=== PATIENT | female | born 1930 | race Caucasian/White ===

== ENCOUNTER 2017-10-20 02:11 | Inpatient (IN) | payer MEDICARE ==
[2017-10-20 03:36] LABS: Troponin I 0.201 ng/mL (< 0.028)
[2017-10-20] MEDS ORDERED: Warfarin Sodium 5 MG TAB PO SCH (03:45)
[2017-10-20 06:39] LABS: Troponin I 1.893 ng/mL (< 0.028)
[2017-10-20] MEDS ORDERED: Nitroglycerin 0.4 MG TAB (25 Tab Bottle) SL PRN (06:43)
[2017-10-20 07:26] VITALS: BMI 20.9
[2017-10-20] MEDS ORDERED: HYDROcodone/Acetaminophen 5/325 mg Tablet PO PRN (07:55)
[2017-10-20] MEDS ORDERED: Ondansetron HCl/PF 4 MG/2 ML Vial IVP PRN (08:07)
[2017-10-20] MEDS ORDERED: Ondansetron ODT 4 MG TAB PO PRN (08:08)
[2017-10-20] MEDS: Aspirin 325 MG TAB PO SCH (08:27)
[2017-10-20] MEDS ORDERED: Enoxaparin Sodium 60 MG/0.6 ML SYRINGE SC SCH (09:00)
[2017-10-20] MEDS ORDERED: Enoxaparin Sodium 80 MG/0.8 ML SYRINGE SC SCH (09:00)
[2017-10-20 09:44] LABS: Troponin I 6.741 ng/mL (< 0.028)
[2017-10-20] MEDS ORDERED: HumaLOG 300 UNITS/3 ML VIAL SC PRN ×2 (09:52)
[2017-10-20] MEDS ORDERED: Dextrose 5% in Water 1,000 ML IV PRN (09:52)
[2017-10-20] MEDS ORDERED: Dextrose 50% Abboject 50 ML SYRINGE SLOW IVP PRN (09:52)
[2017-10-20] MEDS: Carvedilol 3.125 MG TAB PO SCH ×2 (09:55→21:22)
[2017-10-20] MEDS ORDERED: Iopamidol 370 76% 50 ML VIAL FS ONE (10:13)
[2017-10-20] MEDS ORDERED: Iopamidol 370 76% 100 ML VIAL ONE (10:13)
[2017-10-20 10:18] LABS: #Lymphocytes 1.7 thou/uL (1.20-3.40); #Monocytes 0.6 thou/uL (0.11-0.59); #Neutrophils 5.7 thou/uL (1.40-6.50); %Eosinophils 0.6 % (0.0-10.0); %Lymphocytes 20.8 % (21.0-51.0); %Monocytes 7.4 % (0.0-10.0); %Neutrophils 71.3 % (42.0-75.0); Mean Corpuscular Hemoglobin 25.2 pg (27.0-31.0); Mean Corpuscular Volume 81.5 fl (81.0-99.0); Mean Platelet Volume 7.2 fL (7.4-10.4); Platelet Count 345 thou/uL (130-400); RBC Distribution Width 14.7 % (11.5-14.5); Red Blood Cell (RBC) Count 3.96 mill/uL (4.20-5.40)
--- NOTE | 2017-10-20 10:21 | RAD ---
PA AND LATERAL CHEST XRAY: DATE: 10/20/17. HISTORY: Shortness of breath. COMPARISON: 05/27/16. FINDINGS: Thee has been interval almost complete resolution of bilateral pleural effusions. There is blunting of the posterior costophrenic angles suggesting small bilateral pleural effusions or pleural thickeni ng. Calcified granuloma is seen at the right lung base. Lungs are otherwise clear. Cardiac silhoue tte is enlarged. The pulmonary vasculature is within normal limits. Vascular calcification is seen in the thoracic aorta. There are prominent vascular calcifications in the region of the splenic yoel ry. Degenerative changes are present in the spine. IMPRESSION: 1. Small bilateral pleural effusions versus pleural and parenchymal scarring in the region of the po sterior costophrenic angles. 2. Cardiomegaly without overt congestive heart failure. POS: JES
[2017-10-20 10:25] LABS: INR-International Normal Ratio 1.8; PTT 34.6 SEC (22.9-36.1); Prothrombin Time 21.7 SEC (12.0-14.7)
[2017-10-20 10:26] LABS: Hemoglobin A1c 6.2 % (4.0-6.0)
[2017-10-20 10:40] LABS: ALT (SGPT) 26 U/L (8-55); AST (SGOT) 76 U/L (5-34); Albumin 4.2 g/dL (3.4-4.8); Alkaline Phosphatase 99 U/L (40-150); Anion Gap 12 mmol/L (10-20); BUN (Urea Nitrogen) 21 mg/dL (9.8-20.1); Bilirubin, Total 0.5 mg/dL (0.2-1.2); Calc. Creatinine Clearance 42 mL/min (70-130); Calcium 10.7 mg/dL (7.8-10.44); Carbon Dioxide 25 mmol/L (23-31); Chloride 105 mmol/L (98-107); Digoxin 1.04 ng/mL (0.8-2.0); Estimated GFR-MDRD 65; Globulin 3.6 g/dL (2.4-3.5); Glucose 123 mg/dL (83-110); Potassium 4.1 mmol/L (3.5-5.1); Protein, Total 7.8 g/dL (6.0-8.3); Sodium 138 mmol/L (136-145)
--- NOTE | 2017-10-20 10:50 | HP ---
DATE OF ADMISSION: 10/20/2017 CHIEF COMPLAINT: Chest pain. HISTORY OF PRESENT ILLNESS: This is an 86-year-old white female with a known history of coronary art sonam disease, was recently hospitalized in July with chest pain and had a cardiac catheterization, unable to stent because of the narrowed arteries and her coronary arteries. The patient was seen by Dr. Fuller at that time. The patient has returned today as she was having chest pain since last n ight, intermittently on and off and lasting for more than half an hour. The patient initially went t [facility] ER and then was transferred here as the patient has a persistent elevation of the trop onins. This morning, the troponin was 1.8. Her chest pain is resolved. She was on a nitropatch. S he denied having any nausea or vomiting at this time, but she did complain of sweating and palpitatio ns. The pain she locates is like a band-like pain across the chest, not radiating to the arm. The sydnie starr has a known history of type 2 diabetes mellitus and hypertension. She is a nonsmoker. She de nies alcohol. No history of illicit drug use. She had a history of a right peripheral arterial sten t placed in August by Dr. Fuller and was planned for a left femoral artery stenting also. The sydnie starr also has a history of atrial fibrillation and is on anticoagulation for that. PAST MEDICAL HISTORY: 1. Hypothyroidism. 2. Type 2 diabetes mellitus. 3. Coronary artery disease. 4. Atrial fibrillation. 5. History of diastolic heart failure. 6. Hypertension. PAST SURGICAL HISTORY: 1. Positive for an appendectomy. 2. Hysterectomy. 3. History of spinal surgeries in the past. SOCIAL HISTORY: The patient is a nonsmoker. No history of alcohol, no history of illicit drug use. She lives with her . FAMILY HISTORY: Not significant for any coronary artery disease. ALLERGIES: No known drug allergies. HOME MEDICATIONS: 1. Amlodipine 5 mg p.o. daily. 2. Digoxin 0.125 mg p.o. daily. 3. Lasix 40 mg p.o. daily. 4. Isosorbide mononitrate 60 mg p.o. daily. 5. Levothyroxine 100 mg p.o. daily. 6. Losartan 100 mg p.o. daily. 7. Metformin 500 mg p.o. b.i.d. 8. Metoprolol 25 mg p.o. daily. 9. Warfarin 5 mg p.o. as directed, 7.5 mg as directed. REVIEW OF SYSTEMS: All 12 systems are reviewed with the patient thoroughly and found to be negative. Constitutional: Weight loss or gain, ability to conduct usual activities. Skin: Rash, itching. Eyes: Double vision, pain. ENT/Mouth: Nose bleeding, neck stiffness, pain, tenderness. Cardiovascular: Palpitations, dyspnea on exertion, orthopnea. Respiratory: Shortness of breath, wheezing, cough, hemoptysis, fever or night sweats. Gastrointestinal: Poor appetite, abdominal pain, heartburn, nausea, vomiting, constipation, or diarrhea. Genitourinary: Urgency, frequency, dysuria, nocturia. Musculoskeletal: Pain, swelling. Neurologic/Psychiatric: Anxiety, depression. Allergy/Immunologic: Skin rash, bleeding tendency. PHYSICAL EXAMINATION: VITAL SIGNS: Blood pressures are pressures are 158/73, heart rate is 88, respirations 18, saturation 99%. GENERAL: The patient is moderately built, moderately nourished, does not appear to be in acute distr ess at this time. She is alert, oriented x3. HEENT: Atraumatic, normocephalic. PERRLA. Extraocular muscles were intact. Oral mucosa pink and m oist. CARDIOVASCULAR: S1, S2 normal. No murmurs, rubs or gallops. LUNGS: Bilateral air entry was equal. No wheezing, no crackles. ABDOMEN: Soft, nontender, no guarding, no rebound tenderness. Bowel sounds normal. MUSCULOSKELETAL: No calf tenderness. No pedal edema. No joint tenderness, no joint swelling. SKIN: No cyanosis or erythema, no rash, no pallor. NEUROLOGIC: Cranial nerve examination II-XII are intact. No focal deficits are noted at this time. PSYCHIATRIC: No signs of hallucinations, no signs of sofía. No signs of depression. NECK: No thyromegaly. No lymphadenopathy was noted. LABORATORY DATA: Labs are currently pending. A CBC and a CMP was ordered today along with a BNP. Chest x-ray is very clear. No evidence of any cardiopulmonary process at this time. Chest x-ray has been reviewed by me. ASSESSMENT AND PLAN: 1. Atb-QP-ixbicry elevation myocardial infarction. 2. History of type 2 diabetes mellitus. 3. History of atrial fibrillation. 4. Hypertension. 5. History of hyperlipidemia. PLAN: 1. The plan is to closely monitor this patient. We will start the patient on Lovenox 1 mg/kg b.i.d. and will continue the patient on beta-blockers and aspirin. Will consult Cardiology for further man agement at this time. The patient has a recent cardiac catheterization which did show evidence of ob structive vessel, but because of the low caliber of the vessel no intervention was offered at that ti mo and the patient also has history of peripheral vascular disease closely monitored. No evidence of any claudications in the legs. 2. Patient has a history of type 2 diabetes mellitus, well controlled. We will restart the patient on home medications. We will keep the patient on a sliding scale insulin at this time. We will hold off on the metformin. 3. History of atrial fibrillation. We will continue the patient on digoxin. We will check the digo nidia levels, the patient is rate controlled at this time and we will continue the beta vanessa. 4. History of hypertension, well controlled. We will continue the patient on home medications at th is time, the patient is on losartan 100 mg p.o. daily. 5. Deep venous thrombosis prophylaxis. Patient is on Coumadin, therapeutic. DICTATING PHYSICIAN: Bakari Savage M.D. I spent 75 minutes with this patient.
[2017-10-20] MEDS ORDERED: Lidocaine 1% (PF) 30 ML VIAL ONE (11:14)
[2017-10-20] MEDS ORDERED: Sodium Chloride 0.9% 1,000 ML IV SCH (11:15)
[2017-10-20] MEDS ORDERED: Communication Order-Pharmacy FS SCH (11:15)
[2017-10-20] MEDS ORDERED: Fentanyl 100 MCG/2 ML VIAL ONE (11:53)
[2017-10-20] MEDS ORDERED: Midazolam HCl 2 mg/2 ml Vial ONE (11:53)
[2017-10-20] MEDS ORDERED: Nitroglycerin 100MG/250ML BOT 250 ML ONE (12:02)
--- NOTE | 2017-10-20 12:12 | PRG ---
DATE OF SERVICE: 10/20/2017 SUBJECTIVE: Ms. Jackson recently presented with chest pain. It was acute in onset. It lasted for 1 hour. She was in the emergency room where symptoms markedly improved. Her troponin was elevated at 6. Mr. Jackson does have a history of occluded right coronary artery in addition to severe stenosis to a diagonal branch in addition to a subtotal OM branch. Her most recent stress study performed within t he last month did suggest a marked diminished LVEF which is a new finding. She also had ischemia pre sent in the lateral wall. Given troponin, acute onset of chest pain, would recommend repeat coronary angiography. I discussed the procedure in full detail with Ms. Jackson. The risks included but not limited to the following: , stroke, [place], need for emergency surgery, loss of limb, bleeding, and infection, as well as a re action to the dye causing kidney failure and needing long-term dialysis. Other risks include acute st ent thrombosis and restenosis, vessel dissection, perforation, need for emergency surgery in addition to distal embolization causing chronic foot discomfort as well as amputation. All questions were an swered. We will proceed with drug-coated stent placement if needed. Further recommendations pending the above.
[2017-10-20] MEDS ORDERED: Heparin 10,000 UNITS/1 ML VIAL ONE (12:36)
[2017-10-20] MEDS ORDERED: Clopidogrel Bisulfate 300 MG TAB ONE (12:36)
[2017-10-20] MEDS ORDERED: Nitroglycerin 2% Ointment 1 INCH/1 GM Packet TOP SCH (14:00)
[2017-10-20] MEDS ORDERED: Furosemide 20 MG/2 ML VIAL SLOW IVP SCH (14:00)
[2017-10-20] MEDS ORDERED: Clopidogrel Bisulfate 300 MG TAB PO SCH (14:13)
[2017-10-20] MEDS: Sodium Chloride 0.9% 1,000 ML IV SCH ×2 (14:47→23:28)
[2017-10-21 06:13] LABS: ALT (SGPT) 20 U/L (8-55); AST (SGOT) 46 U/L (5-34); Albumin 3.5 g/dL (3.4-4.8); Alkaline Phosphatase 81 U/L (40-150); Anion Gap 12 mmol/L (10-20); BUN (Urea Nitrogen) 19 mg/dL (9.8-20.1); Bilirubin, Total 0.7 mg/dL (0.2-1.2); Calc. Creatinine Clearance 44 mL/min (70-130); Carbon Dioxide 23 mmol/L (23-31); Chloride 107 mmol/L (98-107); Estimated GFR-MDRD 70; Globulin 2.9 g/dL (2.4-3.5); Glucose 121 mg/dL (83-110); Potassium 3.8 mmol/L (3.5-5.1); Protein, Total 6.4 g/dL (6.0-8.3); Sodium 138 mmol/L (136-145)
[2017-10-21] MEDS: Carvedilol 3.125 MG TAB PO SCH ×2 (08:36→20:24)
[2017-10-21] MEDS: Clopidogrel Bisulfate 75 MG TAB PO SCH (08:36)
[2017-10-21] MEDS: Aspirin 325 MG TAB PO SCH (08:36)
[2017-10-21] MEDS: Amlodipine 5 MG TAB PO SCH (08:36)
[2017-10-21] MEDS: Levothyroxine Sodium 75 MCG TAB PO SCH (08:37)
[2017-10-21] MEDS: Digoxin 0.125 MG TAB PO SCH (08:37)
[2017-10-21] MEDS: Furosemide 40 MG TAB PO SCH (08:37)
[2017-10-21] MEDS: Enoxaparin Sodium 60 MG/0.6 ML SYRINGE SC SCH ×2 (08:37→20:25)
[2017-10-21] MEDS: Losartan 25 MG TAB PO SCH (08:38)
[2017-10-21] MEDS ORDERED: Furosemide 80 MG TAB PO SCH (09:00)
[2017-10-21] MEDS: Sodium Chloride 0.9% 1,000 ML IV SCH ×2 (10:38→20:31)
--- NOTE | 2017-10-21 13:59 | CON ---
DATE OF CONSULTATION: 10/20/2017 REASON FOR CONSULTATION: Non-Q wave myocardial infarction. HISTORY OF PRESENT ILLNESS: Ms. Jackson is a very pleasant 86-year-old woman I had seen her in the [facility]. She has a history of CAD with a completely occluded right coronary artery and subtotalled OM [facility] in addition to severe stenosis of a large diagonal branch. She has been treated medically over t he last 2 years. She recently presented with chest pain. It was acute in onset. No other ameliorat ing, exacerbating, or precipitating factors present. She is currently pain free. PAST MEDICAL HISTORY: CAD, diabetes mellitus, hypothyroidism, diastolic heart failure, hypertension. PAST SURGICAL HISTORY: Hysterectomy, appendectomy. SOCIAL HISTORY: No current tobacco or alcohol use. ALLERGIES: None. REVIEW OF SYSTEMS: Ten-point review of systems is reviewed and was negative. HOME MEDICATIONS: Coumadin, digoxin, amlodipine, levothyroxine, isosorbide, Lasix, metoprolol, losar herndon, metformin, and Coumadin. PHYSICAL EXAMINATION: VITAL SIGNS: Blood pressure 130/56, pulse 65, temperature 97.6. GENERAL: Patient is a pleasant female who is in no acute distress. The patient appears her stated age. VITAL SIGNS: NEUROLOGIC: The patient is alert and oriented times 3 with no focal neurologic deficits. HEENT: Sclerae without icterus. Mouth has moist mucous membranes with normal pallor. NECK: No JVD. Carotid upstroke brisk. No bruits bilaterally. LUNGS: Clear to auscultation with unlabored respirations. BACK: No scoliosis or kyphosis. CARDIAC: Regular rate and rhythm with normal S1 and S2. No S3 or S4 noted. No significant rubs, murmurs, thrills, or gallops noted throughout the precordium. PMI is not displaced. There is no parasternal heave. ABDOMEN: Soft, nontender, nondistended. No peritoneal signs present. No hepatosplenomegaly. No abnormal striae. EXTREMITIES: 2+ femoral and 2+ dorsalis pedis pulses. No cyanosis, clubbing, or edema. SKIN: No gross abnormalities. PERTINENT LABS: Hemoglobin 10, creatinine 0.78. IMPRESSION: 1. Non-Q wave myocardial infarction. 2. Coronary artery disease. 3. Cardiomyopathy. RECOMMENDATIONS: From a CV standpoint, her symptoms appear to be acute in onset suggesting unstable angina. At this point, I recommend coronary angio plus PCI. Please see previous consent. Further r ecommendations pending the above.
--- NOTE | 2017-10-21 14:04 | PRG ---
DATE OF SERVICE: 10/21/2017 SUBJECTIVE: Ms. Jackson currently is doing much better. No recurrent episodes of the chest pain or p ressure. No shortness of breath, lightheadedness or dizziness. PHYSICAL EXAMINATION: GENERAL: Patient is a pleasant female who is in no acute distress. The patient appears her stated a ge. CURRENT VITAL SIGNS: Blood pressure 130/56, pulse 65, temperature 97.6. NEUROLOGIC: The patient is alert and oriented times 3 with no focal neurologic deficits. HEENT: Sclerae without icterus. Mouth has moist mucous membranes with normal pallor. NECK: No JVD. Carotid upstroke brisk. No bruits bilaterally. LUNGS: Clear to auscultation with unlabored respirations. BACK: No scoliosis or kyphosis. CARDIAC: Regular rate and rhythm with normal S1 and S2. No S3 or S4 noted. No significant rubs, mu rmurs, thrills, or gallops noted throughout the precordium. PMI is not displaced. There is no ramakrishna ternal heave. ABDOMEN: Soft, nontender, nondistended. No peritoneal signs present. No hepatosplenomegaly. No ab normal striae. EXTREMITIES: 2+ femoral and 2+ dorsalis pedis pulses. No cyanosis, clubbing, or edema. SKIN: No gross abnormalities. IMPRESSION: 1. Mmc-JP-toevnjd elevation myocardial infarction. 2. Severe multivessel disease. RECOMMENDATIONS: I discussed with Ms. Jackson and I did review the films again. Also, I reviewed the films with Dr. Lana Donald. The vessel within the mid circumflex artery is certainly approachable , although I would likely need a 2.25 stent. I did discuss with Ms. Jackson that there is a concern f or jailing of the vessel causing further MO. I also stated that if conservative therapy was performe d, she is at increased risk of a second event over the next 14 days. I have discussed the risks and benefits of proceeding with medical therapy versus repeat angiography with stent placement of the cir cumflex artery. She has opted for medical therapy. We will therefore add Plavix in addition to isos orbide. She would also like to proceed with novel oral anticoagulation instead of Coumadin. We will discontinue Lovenox and place her on Eliquis prior to discharge. I would like to observe her overni ght and tomorrow. If stable, it would be okay from my standpoint to discharge home on Tuesday. I als o discussed LifeVest with Mr. Jackson. Her LVEF is estimated at 25%-30%. She is amenable to LifeVest .
--- NOTE | 2017-10-21 15:48 | PDOC.PN ---
- Subjective Encounter Start Date: 10/21/17 Encounter Start Time: 15:00 Patient is seen today post cath, she is alert and orietwed. family at bedside, waiting for Life vest. - Objective Resuscitation Status: Resuscitation Status FULL:Full Resuscitation MAR Reviewed: Yes Vital Signs & Weight: Vital Signs (12 hours) Temp Pulse Pulse Pulse Resp BP BP 10/21/17 15:43 97.6 F 62 18 10/21/17 11:30 97.6 F 65 16 10/21/17 09:11 96 89 128/81 10/21/17 08:37 76 10/21/17 08:36 76 143/65 H 10/21/17 07:31 97.9 F 76 16 10/21/17 07:10 98.4 F 63 16 10/21/17 04:00 98.4 F 63 16 BP BP Pulse Ox 10/21/17 15:43 119/59 L 95 10/21/17 11:30 130/56 L 96 10/21/17 09:11 119/56 L 10/21/17 08:37 10/21/17 08:36 10/21/17 07:31 143/65 H 95 10/21/17 07:10 93 L 10/21/17 04:00 128/62 96 Weight Weight 117 lb 8 oz I&O: 10/20/17 10/21/17 10/22/17 06:59 06:59 06:59 Intake Total 2701 600 Output Total 0 Balance 2701 600 Result Diagrams: 10/20/17 10:11 10/21/17 05:04 Additional Labs: Accuchecks 10/21/17 10/21/17 10/20/17 10:46 05:48 20:42 POC Glucose 138 H 124 H 156 H 10/20/17 17:23 POC Glucose 174 H Radiology Reviewed by me: Yes Phys Exam - Physical Examination HEENT: PERRLA, moist MMs Neck: no nodes, no JVD Respiratory: clear to auscultation bilateral Cardiovascular: RRR, no significant murmur Gastrointestinal: soft, non-tender Musculoskeletal: no edema Lymphatic: no nodes Psychiatric: normal affect, A&O x 3 Dx/Plan (1) DM type 2 (diabetes mellitus, type 2) Status: Acute Comment: continue with ARTUR. Milly. (2) Afib Code(s): I48.91 - UNSPECIFIED ATRIAL FIBRILLATION Status: Acute Comment: rate controleld, continue to Monitor. (3) HTN (hypertension) Code(s): I10 - ESSENTIAL (PRIMARY) HYPERTENSION Status: Acute Comment: Well controlled On AceI, Coreg, Will add spironlactone. (4) NSTEMI (non-ST elevated myocardial infarction) Code(s): I21.4 - NON-ST ELEVATION (NSTEMI) MYOCARDIAL INFARCTION Status: Acute (5) Palpitations Code(s): R00.2 - PALPITATIONS Status: Acute Comment: Cardiac cath today, waiti for recommedations. Planned for Life vest perm nurse - Plan cont current plan of care, continue antibiotics, PT/OT, social insurance administrator, respiratory therapy, incentive spirometry, out of bed/ambulate * . - Discharge Day Encounter end time: 15:35 Review of Systems - Review of Systems Eyes: negative: Pain, Vision Change, Conjunctivae Inflammation, Eyelid Inflammation, Redness, Other ENT: negative: Ear Pain, Ear Discharge, Nose Pain, Nose Discharge, Nose Congestion, Mouth Pain, Mouth Swelling, Throat Pain, Throat Swelling, Other Respiratory: negative: Cough, Dry, Shortness of Breath, Hemoptysis, SOB with Excertion, Pleuritic Pain, Sputum, Wheezing Cardiovascular: negative: chest pain, palpitations, orthopnea, paroxysmal nocturnal dyspnea, edema, light headedness, other Gastrointestinal: negative: Nausea, Vomiting, Abdominal Pain, Diarrhea, Constipation, Melena, Hematochezia, Other Genitourinary: negative: Dysuria, Frequency, Incontinence, Hematuria, Retention , Other Musculoskeletal: negative: Neck Pain, Shoulder Pain, Arm Pain, Back Pain, Hand Pain, Leg Pain, Foot Pain, Other - Medications/Allergies Allergies/Adverse Reactions: Allergies Allergy/AdvReac Type Severity Reaction Status Date / Time No Known Allergies Allergy Verified 07/15/15 11:26 Medications: Current Medications Acetaminophen (Tylenol) 650 mg PO Q4H PRN PRN Reason: Headache/Fever or Pain Hydrocodone Bitart/Acetaminophen ([place] 5/325) 1 tab PO Q4H PRN PRN Reason: Moderate Pain (4-6) Amlodipine Besylate (Norvasc) 5 mg PO DAILY [facility] Last Admin: 10/21/17 08:36 Dose: 5 mg Aspirin (Aspirin) 325 mg PO DAILY [facility] Last Admin: 10/21/17 08:36 Dose: 325 mg Carvedilol (Coreg) 3.125 mg PO BID [facility] Last Admin: 10/21/17 08:36 Dose: 3.125 mg Clopidogrel Bisulfate (Plavix) 75 mg PO DAILY [facility] Last Admin: 10/21/17 08:36 Dose: 75 mg Dextrose/Water (Dextrose 50%) 25 gm SLOW IVP PRN PRN PRN Reason: Hypoglycemia Digoxin (Lanoxin) 0.125 mg PO DAILY [facility] Last Admin: 10/21/17 08:37 Dose: 0.125 mg Enoxaparin Sodium (Lovenox) 50 mg SC 0900,2100 [facility] Last Admin: 10/21/17 08:37 Dose: 50 mg Furosemide (Lasix) 40 mg PO DAILY [facility] Last Admin: 10/21/17 08:37 Dose: 40 mg Glucagon (Glucagon) 1 mg IM PRN PRN PRN Reason: Hypoglycemia Dextrose/Water (D5w) 1,000 mls @ 0 mls/hr IV .Q0M PRN; As Directed PRN Reason: Hypoglycemia Sodium Chloride (Normal Saline 0.9%) 1,000 mls @ 100 mls/hr IV .Q10H [facility] Last Admin: 10/21/17 10:38 Dose: 1,000 mls Insulin Human Lispro (Humalog) 0 units SC .MODERATE SLIDING SC PRN PRN Reason: Moderate Correctional Scale Insulin Human Lispro (Humalog) 0 units SC .BEDTIME SLIDING SC PRN PRN Reason: Bedtime Correctional Scale Isosorbide Mononitrate (Imdur Er) 30 mg PO DAILY [facility] Last Admin: 10/21/17 08:37 Dose: 30 mg Levothyroxine Sodium (Synthroid) 75 mcg PO DAILY [facility] Last Admin: 10/21/17 08:37 Dose: 75 mcg Losartan Potassium (Cozaar) 100 mg PO DAILY [facility] Last Admin: 10/21/17 08:38 Dose: 100 mg Nitroglycerin (Nitrostat) 0.4 mg SL Q5MIN PRN PRN Reason: Chest Pain Sodium Chloride (Flush - Normal Saline) 10 ml IVF Q12HR [facility] Last Admin: 10/21/17 08:35 Dose: Not Given Sodium Chloride (Flush - Normal Saline) 10 ml IVF PRN PRN PRN Reason: Saline Flush
[2017-10-22] MEDS: Acetaminophen 325 MG TAB PO PRN (00:05)
[2017-10-22] MEDS: Sodium Chloride 0.9% 1,000 ML IV SCH ×2 (05:47→08:31)
[2017-10-22] MEDS: Amlodipine 5 MG TAB PO SCH (08:23)
[2017-10-22] MEDS: Carvedilol 3.125 MG TAB PO SCH ×2 (08:24→21:45)
[2017-10-22] MEDS: Digoxin 0.125 MG TAB PO SCH (08:24)
[2017-10-22] MEDS: Enoxaparin Sodium 60 MG/0.6 ML SYRINGE SC SCH ×2 (08:24→21:45)
[2017-10-22] MEDS: Aspirin 325 MG TAB PO SCH (08:24)
[2017-10-22] MEDS: Clopidogrel Bisulfate 75 MG TAB PO SCH (08:24)
[2017-10-22] MEDS: Losartan 25 MG TAB PO SCH (08:25)
[2017-10-22] MEDS: Furosemide 40 MG TAB PO SCH (08:25)
[2017-10-22] MEDS: Levothyroxine Sodium 75 MCG TAB PO SCH (08:25)
--- NOTE | 2017-10-22 12:18 | PRG ---
DATE OF SERVICE: 10/22/2017 SUBJECTIVE: Ms. Jackson is doing well, no chest pain or pressure. PHYSICAL EXAMINATION: VITAL SIGNS: Blood pressure 134/67, pulse 67. LUNGS: Clear. CARDIAC: Normal S1, normal S2. ABDOMEN: Soft, nontender. EXTREMITIES: There is no edema. ASSESSMENT: 1. Status post non-ST elevation infarction. 2. Multivessel coronary artery disease. PLAN: The patient is having arrangements to have a LifeVest placed. Okay to go home after that.
--- NOTE | 2017-10-22 13:39 | PDOC.PN ---
- Subjective Encounter Start Date: 10/22/17 Encounter Start Time: 10:00 Patient is seen today, alert and oriented. No other Concerns noted. no cough, no chest pain. - Objective Resuscitation Status: Resuscitation Status FULL:Full Resuscitation MAR Reviewed: Yes Vital Signs & Weight: Vital Signs (12 hours) Temp Pulse Resp BP BP BP Pulse Ox 10/22/17 11:34 98.4 F 67 15 134/67 98 10/22/17 08:24 70 10/22/17 08:23 70 162/72 H 10/22/17 07:14 97.8 F 70 20 162/72 H 100 10/22/17 07:10 97.5 F L 96 16 95 10/22/17 03:58 97.5 F L 96 16 146/81 H 100 Weight Weight 119 lb 4.8 oz I&O: 10/21/17 10/22/17 10/23/17 06:59 06:59 06:59 Intake Total 2701 2457 300 Output Total 0 Balance 2701 2457 300 Result Diagrams: 10/20/17 10:11 10/21/17 05:04 Additional Labs: Accuchecks 10/22/17 10/22/17 10/21/17 11:26 05:50 20:45 POC Glucose 117 H 117 H 150 H 10/21/17 16:57 POC Glucose 123 H Radiology Reviewed by me: Yes Phys Exam - Physical Examination HEENT: PERRLA, moist MMs Neck: no nodes, no JVD Respiratory: no wheezing, no rales Cardiovascular: RRR, no significant murmur Gastrointestinal: soft, non-tender Musculoskeletal: no edema, pulses present Neurological: non-focal, normal sensation Lymphatic: no nodes Psychiatric: normal affect, A&O x 3 Dx/Plan (1) DM type 2 (diabetes mellitus, type 2) Status: Acute Comment: continue with SSI. [place]. (2) Afib Code(s): I48.91 - UNSPECIFIED ATRIAL FIBRILLATION Status: Acute Comment: rate controleld, continue to Monitor. (3) HTN (hypertension) Code(s): I10 - ESSENTIAL (PRIMARY) HYPERTENSION Status: Acute Comment: Well controlled On AceI, Coreg, Will add spironlactone. (4) NSTEMI (non-ST elevated myocardial infarction) Code(s): I21.4 - NON-ST ELEVATION (NSTEMI) MYOCARDIAL INFARCTION Status: Acute (5) Palpitations Code(s): R00.2 - PALPITATIONS Status: Acute Comment: Cardiac cath today showed persistant lesions, Cardiology suggested No intervention and medical management only, with Life vest, Will also planned for Eliquis at [facility]. - Plan cont current plan of care, plan discussed w/ family, PT/OT, social work associate, respiratory therapy, incentive spirometry, out of bed/ambulate, DVT proph w/ lovenox * . - Discharge Day Encounter end time: 10:35 Review of Systems - Review of Systems Eyes: negative: Pain, Vision Change, Conjunctivae Inflammation, Eyelid Inflammation, Redness, Other ENT: negative: Ear Pain, Ear Discharge, Nose Pain, Nose Discharge, Nose Congestion, Mouth Pain, Mouth Swelling, Throat Pain, Throat Swelling, Other Respiratory: negative: Cough, Dry, Shortness of Breath, Hemoptysis, SOB with Excertion, Pleuritic Pain, Sputum, Wheezing Cardiovascular: negative: chest pain, palpitations, orthopnea, paroxysmal nocturnal dyspnea, edema, light headedness, other Gastrointestinal: negative: Nausea, Vomiting, Abdominal Pain, Diarrhea, Constipation, Melena, Hematochezia, Other Musculoskeletal: negative: Neck Pain, Shoulder Pain, Arm Pain, Back Pain, Hand Pain, Leg Pain, Foot Pain, Other - Medications/Allergies Allergies/Adverse Reactions: Allergies Allergy/AdvReac Type Severity Reaction Status Date / Time No Known Allergies Allergy Verified 07/15/15 11:26 Medications: Current Medications Acetaminophen (Tylenol) 650 mg PO Q4H PRN PRN Reason: Headache/Fever or Pain Last Admin: 10/22/17 00:05 Dose: 650 mg Hydrocodone Bitart/Acetaminophen ([place] 5/325) 1 tab PO Q4H PRN PRN Reason: Moderate Pain (4-6) Amlodipine Besylate (Norvasc) 5 mg PO DAILY [facility] Last Admin: 10/22/17 08:23 Dose: 5 mg Aspirin (Aspirin) 325 mg PO DAILY [facility] Last Admin: 10/22/17 08:24 Dose: 325 mg Carvedilol (Coreg) 3.125 mg PO BID [facility] Last Admin: 10/22/17 08:24 Dose: 3.125 mg Clopidogrel Bisulfate (Plavix) 75 mg PO DAILY [facility] Last Admin: 10/22/17 08:24 Dose: 75 mg Dextrose/Water (Dextrose 50%) 25 gm SLOW IVP PRN PRN PRN Reason: Hypoglycemia Digoxin (Lanoxin) 0.125 mg PO DAILY [facility] Last Admin: 10/22/17 08:24 Dose: 0.125 mg Enoxaparin Sodium (Lovenox) 50 mg SC 0900,2100 [facility] Last Admin: 10/22/17 08:24 Dose: 50 mg Furosemide (Lasix) 40 mg PO DAILY [facility] Last Admin: 10/22/17 08:25 Dose: 40 mg Glucagon (Glucagon) 1 mg IM PRN PRN PRN Reason: Hypoglycemia Dextrose/Water (D5w) 1,000 mls @ 0 mls/hr IV .Q0M PRN; As Directed PRN Reason: Hypoglycemia Insulin Human Lispro (Humalog) 0 units SC .MODERATE SLIDING SC PRN PRN Reason: Moderate Correctional Scale Insulin Human Lispro (Humalog) 0 units SC .BEDTIME SLIDING SC PRN PRN Reason: Bedtime Correctional Scale Isosorbide Mononitrate (Imdur Er) 30 mg PO DAILY [facility] Last Admin: 10/22/17 08:25 Dose: 30 mg Levothyroxine Sodium (Synthroid) 75 mcg PO DAILY [facility] Last Admin: 10/22/17 08:25 Dose: 75 mcg Losartan Potassium (Cozaar) 100 mg PO DAILY [facility] Last Admin: 10/22/17 08:25 Dose: 100 mg Nitroglycerin (Nitrostat) 0.4 mg SL Q5MIN PRN PRN Reason: Chest Pain Sodium Chloride (Flush - Normal Saline) 10 ml IVF Q12HR [facility] Last Admin: 10/22/17 08:22 Dose: Not Given Sodium Chloride (Flush - Normal Saline) 10 ml IVF PRN PRN PRN Reason: Saline Flush
--- NOTE | 2017-10-23 08:49 | EKG ---
Test Reason : POST CATH Blood Pressure : / mmHG Vent. Rate : 077 BPM Atrial Rate : 074 BPM P-R Int : 000 ms QRS Dur : 098 ms QT Int : 364 ms P-R-T Axes : 000 043 -31 degrees QTc Int : [address] depression, consider subendocardial injury or digitalis effect Nonspecific T wave abnormality , probably digitalis effect Abnormal ECG When compared with ECG of 20-OCT-2017 02:58, (Unconfirmed) Minimal criteria for Anterior infarct are no longer Present Nonspecific T wave abnormality has replaced inverted T waves in Lateral leads Confirmed by JIGAR GARCIA MD ([id number]) on 10/23/2017 8:49:12 AM Referred By: JOSE Confirmed By:JIGAR GARCIA MD
[2017-10-23] MEDS: Clopidogrel Bisulfate 75 MG TAB PO SCH (08:52)
[2017-10-23] MEDS: Furosemide 40 MG TAB PO SCH (08:52)
[2017-10-23] MEDS: Amlodipine 5 MG TAB PO SCH (08:52)
[2017-10-23] MEDS: Carvedilol 3.125 MG TAB PO SCH ×2 (08:52→21:04)
[2017-10-23] MEDS: Aspirin 325 MG TAB PO SCH (08:52)
[2017-10-23] MEDS: Digoxin 0.125 MG TAB PO SCH (08:52)
--- NOTE | 2017-10-23 08:52 | EKG ---
Test Reason : Blood Pressure : / mmHG Vent. Rate : 074 BPM Atrial Rate : 288 BPM P-R Int : 000 ms QRS Dur : 100 ms QT Int : 374 ms P-R-T Axes : 000 013 -54 degrees QTc Int : 415 ms Atrial fibrillation with premature ventricular or aberrantly conducted complexes Septal infarct , age undetermined Abnormal ECG Confirmed by JOSE LOUIS, JIGAR ([id number]) on 10/23/2017 8:52:24 AM Referred By: JOSE Confirmed By:JIGAR GARCIA MD
[2017-10-23] MEDS: Enoxaparin Sodium 60 MG/0.6 ML SYRINGE SC SCH ×2 (08:53→21:04)
[2017-10-23] MEDS: Levothyroxine Sodium 75 MCG TAB PO SCH (08:53)
[2017-10-23] MEDS: Losartan 25 MG TAB PO SCH (08:53)
--- NOTE | 2017-10-23 15:22 | PDOC.PN ---
- Subjective Encounter Start Date: 10/23/17 Encounter Start Time: 09:00 Patient is seen today, alert and oriented. No other concern snoted, pt is planned for Eliquis to be started at discharge. - Objective Resuscitation Status: Resuscitation Status FULL:Full Resuscitation MAR Reviewed: Yes Vital Signs & Weight: Vital Signs (12 hours) Temp Pulse Pulse Pulse Resp BP BP 10/23/17 11:39 91 70 159/72 H 140/64 10/23/17 10:37 98.3 F 59 L 18 10/23/17 08:52 75 10/23/17 08:00 97.5 F L 75 16 10/23/17 07:35 98.6 F 70 18 10/23/17 04:00 98.6 F 70 18 BP Pulse Ox 10/23/17 11:39 10/23/17 10:37 109/59 L 95 10/23/17 08:52 10/23/17 08:00 144/67 H 97 10/23/17 07:35 10/23/17 04:00 130/58 L 98 Weight Weight 111 lb 12.8 oz I&O: 10/22/17 10/23/17 10/24/17 06:59 06:59 06:59 Intake Total 2457 900 480 Balance 2457 900 480 Result Diagrams: 10/20/17 10:11 10/21/17 05:04 Additional Labs: Accuchecks 10/23/17 10/23/17 10/22/17 10:41 04:56 20:14 POC Glucose 184 H 127 H 122 H 10/22/17 16:29 POC Glucose 173 H Radiology Reviewed by me: Yes Phys Exam - Physical Examination HEENT: PERRLA, moist MMs Neck: no nodes, no JVD Respiratory: no wheezing, no rales Cardiovascular: RRR, no significant murmur Gastrointestinal: soft, non-tender Musculoskeletal: no edema, pulses present Neurological: non-focal, normal sensation Lymphatic: no nodes Dx/Plan (1) DM type 2 (diabetes mellitus, type 2) Status: Acute Comment: continue with SSI. Stbale. (2) Afib Code(s): I48.91 - UNSPECIFIED ATRIAL FIBRILLATION Status: Acute Comment: rate controleld, continue to Monitor. (3) HTN (hypertension) Code(s): I10 - ESSENTIAL (PRIMARY) HYPERTENSION Status: Acute Comment: Well controlled On AceI, Coreg, Will add spironlactone. (4) NSTEMI (non-ST elevated myocardial infarction) Code(s): I21.4 - NON-ST ELEVATION (NSTEMI) MYOCARDIAL INFARCTION Status: Acute (5) Palpitations Code(s): R00.2 - PALPITATIONS Status: Acute Comment: Cardiac cath showed persistant lesions, Cardiology suggested No intervention and medical management only, with Life vest, Will also planned for Eliquis at [facility] today. 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 - Discharge Day Encounter end time: 09:35 Review of Systems - Review of Systems Eyes: negative: Pain, Vision Change, Conjunctivae Inflammation, Eyelid Inflammation, Redness, Other ENT: negative: Ear Pain, Ear Discharge, Nose Pain, Nose Discharge, Nose Congestion, Mouth Pain, Mouth Swelling, Throat Pain, Throat Swelling, Other Respiratory: negative: Cough, Dry, Shortness of Breath, Hemoptysis, SOB with Excertion, Pleuritic Pain, Sputum, Wheezing Gastrointestinal: negative: Nausea, Vomiting, Abdominal Pain, Diarrhea, Constipation, Melena, Hematochezia, Other Genitourinary: negative: Dysuria, Frequency, Incontinence, Hematuria, Retention , Other Musculoskeletal: negative: Neck Pain, Shoulder Pain, Arm Pain, Back Pain, Hand Pain, Leg Pain, Foot Pain, Other - Medications/Allergies Allergies/Adverse Reactions: Allergies Allergy/AdvReac Type Severity Reaction Status Date / Time No Known Allergies Allergy Verified 07/15/15 11:26 Medications: Current Medications Acetaminophen (Tylenol) 650 mg PO Q4H PRN PRN Reason: Headache/Fever or Pain Last Admin: 10/22/17 00:05 Dose: 650 mg Hydrocodone Bitart/Acetaminophen ([place] 5/325) 1 tab PO Q4H PRN PRN Reason: Moderate Pain (4-6) Amlodipine Besylate (Norvasc) 5 mg PO DAILY [facility] Last Admin: 10/23/17 08:52 Dose: 5 mg Aspirin (Aspirin) 325 mg PO DAILY [facility] Last Admin: 10/23/17 08:52 Dose: 325 mg Carvedilol (Coreg) 3.125 mg PO BID [facility] Last Admin: 10/23/17 08:52 Dose: 3.125 mg Clopidogrel Bisulfate (Plavix) 75 mg PO DAILY [facility] Last Admin: 10/23/17 08:52 Dose: 75 mg Dextrose/Water (Dextrose 50%) 25 gm SLOW IVP PRN PRN PRN Reason: Hypoglycemia Digoxin (Lanoxin) 0.125 mg PO DAILY [facility] Last Admin: 10/23/17 08:52 Dose: 0.125 mg Enoxaparin Sodium (Lovenox) 50 mg SC 0900,2100 [facility] Last Admin: 10/23/17 08:53 Dose: 50 mg Furosemide (Lasix) 40 mg PO DAILY [facility] Last Admin: 10/23/17 08:52 Dose: 40 mg Glucagon (Glucagon) 1 mg IM PRN PRN PRN Reason: Hypoglycemia Dextrose/Water (D5w) 1,000 mls @ 0 mls/hr IV .Q0M PRN; As Directed PRN Reason: Hypoglycemia Insulin Human Lispro (Humalog) 0 units SC .MODERATE SLIDING SC PRN PRN Reason: Moderate Correctional Scale Insulin Human Lispro (Humalog) 0 units SC .BEDTIME SLIDING SC PRN PRN Reason: Bedtime Correctional Scale Isosorbide Mononitrate (Imdur Er) 30 mg PO DAILY [facility] Last Admin: 10/23/17 08:52 Dose: 30 mg Levothyroxine Sodium (Synthroid) 75 mcg PO DAILY [facility] Last Admin: 10/23/17 08:53 Dose: 75 mcg Losartan Potassium (Cozaar) 100 mg PO DAILY [facility] Last Admin: 10/23/17 08:53 Dose: 100 mg Nitroglycerin (Nitrostat) 0.4 mg SL Q5MIN PRN PRN Reason: Chest Pain Sodium Chloride (Flush - Normal Saline) 10 ml IVF Q12HR [facility] Last Admin: 10/23/17 08:53 Dose: 10 ml Sodium Chloride (Flush - Normal Saline) 10 ml IVF PRN PRN PRN Reason: Saline Flush
--- NOTE | 2017-10-23 18:22 | PRG ---
DATE OF SERVICE: 10/23/2017 SUBJECTIVE: Ms. Jackson is doing fine. No chest pain or pressure. No complaints. OBJECTIVE: VITAL SIGNS: Blood pressure 114/58, pulse 60 and regular. LUNGS: Clear. CARDIAC: Normal S1, normal S2. ABDOMEN: Soft, nontender. EXTREMITIES: There is no edema. ASSESSMENT: 1. Unstable angina, improved. No further anginal pain at this time. 2. Depressed ejection fraction. PLAN: The patient tells me that arrangements are being made to get a LifeVest. She will see Dr. Clint tran tomorrow. Probably home tomorrow. ADDENDUM: On reviewing the chart, the patient had 3 second pause this morning at 2:30 a.m. We will discontinue digoxin. Dr. Fuller will check the patient tomorrow morning. Also had some nonsustai ambar VT on the .
[2017-10-24] MEDS: Acetaminophen 325 MG TAB PO PRN (00:08)
[2017-10-24] MEDS: Amlodipine 5 MG TAB PO SCH (08:41)
[2017-10-24] MEDS: Clopidogrel Bisulfate 75 MG TAB PO SCH (08:42)
[2017-10-24] MEDS: Levothyroxine Sodium 75 MCG TAB PO SCH (08:42)
[2017-10-24] MEDS: Carvedilol 3.125 MG TAB PO SCH (08:42)
[2017-10-24] MEDS: Furosemide 40 MG TAB PO SCH (08:42)
[2017-10-24] MEDS: Losartan 25 MG TAB PO SCH (08:42)
[2017-10-24] MEDS: Aspirin 325 MG TAB PO SCH (08:42)
[2017-10-24] MEDS: Enoxaparin Sodium 60 MG/0.6 ML SYRINGE SC SCH (08:42)
[2017-10-24] MEDS ORDERED: Aspirin 325 MG TAB PO SCH (09:17)
--- NOTE | 2017-10-24 09:24 | PRG ---
DATE OF SERVICE: 10/24/2017 SUBJECTIVE: Ms. Jackson did well. No complaints. No chest pain over the weekend. She is awaiting a LifeVest. PHYSICAL EXAMINATION: VITAL SIGNS: Blood pressure 137/62, pulse 74, temperature 97.4. LUNGS: Clear to auscultation. CARDIAC: Regular rate and rhythm. ABDOMEN: Soft, nontender, nondistended. EXTREMITIES: No edema. IMPRESSION: 1. Ischemic cardiomyopathy. 2. Recent non-Q myocardial infarction. 3. Severe coronary artery disease. RECOMMENDATIONS: Ms. Jackson would like to continue with conservative therapy. It would be okay from my standpoint. They understand there is increased risk of DE in the next 14 days. She is currently on a good appropriate medical therapy including amlodipine, aspirin, carvedilol, Plavix. We will sw itch her over to Eliquis 2.5 mg b.i.d. and decrease aspirin to 81 q.a.m. Otherwise, from my standpoi nt, it would be okay for discharge.
[2017-10-24 11:40] VITALS: TEMP 97.9
[2017-10-24 11:44] VITALS: BP 143/71
--- NOTE | 2017-10-24 15:31 | DIS ---
DATE OF ADMISSION: 10/20/2017 DATE OF DISCHARGE: 10/24/2017 ADMITTING DIAGNOSIS: Acute chest pain. DISCHARGE DIAGNOSIS: [id number] myocardial infarction with medical management. SECONDARY DIAGNOSES: 1. Congestive heart failure with low ejection fraction. 2. Type 2 diabetes mellitus. 3. Coronary artery disease. 4. Atrial fibrillation. 5. History of diastolic heart failure. CONSULTANTS INVOLVED IN THIS CARE: Dr. Garza from Cardiology. HISTORY OF PRESENT ILLNESS: In brief, this is an 86-year-old white female with a known history of co ronary artery disease and was recently hospitalized for the abnormal stress test. The patient also h ad a cardiac catheterization and had knotted arteries, so there was no intervention offered at that t [facility]. The patient returned today and this time she was having elevated troponins. Cardiology decided to go ahead with the catheterization again and it was noted that the patient did not have any stent placed as the patient had similar findings of mid circumflex artery and had a significant narrowing, but there was a concern for jailing of the vessel causing further HI with a stent, so they decided to go for conservative management at this time, so there was a high risk for worsening of the coronary artery disease, and this was discussed thoroughly with the patient by Cardiology and agreed for medic al management at this time. The patient was also suggested to be on Eliquis instead of Coumadin and also on aspirin 81 mg daily. The patient agreed to the plan and patient was discharged home in stabl e condition. PHYSICAL EXAMINATION: On date of discharge, VITAL SIGNS: Blood pressures are 141/73, heart rate of 72, respiration rate 16, saturation 96%. GENERAL: The patient is moderately built and moderately nourished, does not appear to be in acute di stress at this time. She is alert and oriented x3. HEENT: Atraumatic, normocephalic. PERRLA. Extraocular movements are intact. Oral mucosa pink and moist. CARDIOVASCULAR: S1, S2 normal. No murmurs, rubs or gallops. LUNGS: Bilateral air entry was equal. No wheezing, no crackles. ABDOMEN: Soft, nontender, no guarding, no rebound tenderness. Bowel sounds normal. MUSCULOSKELETAL: No calf tenderness. No pedal edema. No joint tenderness. No joint swelling. SKIN: No cyanosis, no erythema, no rash, no pallor. DISCHARGE MEDICATIONS: Metformin 500 mg p.o. b.i.d., amlodipine 5 mg p.o. daily, digoxin 0.125 mg da norberto, Lasix 40 mg p.o. daily, levothyroxine, Cozaar 100 mg p.o. daily. New home medications are Eliquis 2.5 mg p.o. b.i.d., aspirin 81 mg daily, atorvastatin 40 mg p.o. vee ly, Coreg 3.125 mg p.o. b.i.d., isosorbide mononitrate 30 mg p.o. daily. DISCHARGE INSTRUCTIONS: Continue activity as tolerated. Advised to follow up with the primary care physician in 1-2 weeks. Advised to follow up with Cardiology in 2 weeks. DIET: Continue with the cardiac diet, low sodium. I spent 35 minutes with this patient of discharge.
[2017-10-24] MEDS ORDERED: Apixaban 2.5 MG TAB PO SCH (21:00)
[2017-10-24] MEDS ORDERED: Atorvastatin Calcium 40 MG TAB PO SCH (21:00)
== END 2017-10-24 14:49 | disposition home or self-care (01) | DRG 281 ==
LOC: ERS 02:11 → ERHOLD 03:15 → 2SE 07:03
PROVIDERS: ADMIT Internal Medicine; ATTEND Internal Medicine
PROC: 4A023N7 Measurement of Cardiac Sampling and Pressure, Left Heart, Percutaneous Approach (ICD-10-PCS; principal; 2017-10-20)
PROC: B2111ZZ Fluoroscopy of Multiple Coronary Arteries using Low Osmolar Contrast (ICD-10-PCS; 2017-10-20)
DX: I21.4 Non-ST elevation (NSTEMI) myocardial infarction (principal); I50.32 Chronic diastolic (congestive) heart failure; I48.91 Unspecified atrial fibrillation; I11.0 Hypertensive heart disease with heart failure; I25.82 Chronic total occlusion of coronary artery; Q24.5 Malformation of coronary vessels; I25.110 Atherosclerotic heart disease of native coronary artery with unstable angina pectoris; E11.9 Type 2 diabetes mellitus without complications; I25.5 Ischemic cardiomyopathy; E03.9 Hypothyroidism, unspecified; Z95.820 Peripheral vascular angioplasty status with implants and grafts; Z79.01 Long term (current) use of anticoagulants; Z79.84 Long term (current) use of oral hypoglycemic drugs
CPT/HCPCS: 36415; 36416; 71046; 76942; 80053; 80162; 83036; 85347; 93005; 93010; 93458; 93798; 94760; 99152; 99153; A4216; C1769; C1887; G8978-GP-CJ; G8979-GP-CJ; G8980-GP-CJ; G8990-GO-CH; G8991-GO-CH; G8992-GO-CH; J1644; J1650; J1940; J2001; J2250; J3010

== ENCOUNTER 2018-03-30 17:42 | Emergency (ER) | payer MEDICARE ==
[2018-03-30 18:17] LABS: #Basophils 0.1 thou/uL (0.0-0.2); #Eosinphils 0.2 thou/uL (0.0-0.7); #Lymphocytes 1.8 thou/uL (1.20-3.40); #Monocytes 0.7 thou/uL (0.11-0.59); #Neutrophils 3.7 thou/uL (1.40-6.50); %Basophils 1.1 % (0.0-1.0); %Eosinophils 2.9 % (0.0-10.0); %Lymphocytes 28.3 % (21.0-51.0); %Monocytes 10.6 % (0.0-10.0); %Neutrophils 57.2 % (42.0-75.0); Hemoglobin 8.3 g/dL (12.0-16.0); Mean Corpuscular HGB CONC 28.3 g/dL (32.0-36.0); Mean Corpuscular Hemoglobin 21.8 pg (27.0-31.0); Mean Corpuscular Volume 77.2 fL (78.0-98.0); Platelet Count 397 thou/uL (130-400); RBC Distribution Width 16.6 % (11.5-14.5); White Blood Cell (WBC) Count 6.4 thou/uL (4.8-10.8)
[2018-03-30 18:24] LABS: INR-International Normal Ratio 1.3; PTT 33.5 SEC (22.9-36.1); Prothrombin Time 16.5 SEC (12.0-14.7)
[2018-03-30 18:33] LABS: ALT (SGPT) 21 U/L (8-55); AST (SGOT) 26 U/L (5-34); Albumin 4.3 g/dL (3.4-4.8); Alkaline Phosphatase 133 U/L (40-150); Anion Gap 16 mmol/L (10-20); BUN (Urea Nitrogen) 51 mg/dL (9.8-20.1); Bilirubin, Total 0.6 mg/dL (0.2-1.2); Calc. Creatinine Clearance 0 mL/min (70-130); Calcium 9.8 mg/dL (7.8-10.44); Carbon Dioxide 25 mmol/L (23-31); Chloride 99 mmol/L (98-107); Estimated GFR-MDRD 29; Globulin 3.5 g/dL (2.4-3.5); Glucose 156 mg/dL (83-110); Potassium 3.8 mmol/L (3.5-5.1); Protein, Total 7.8 g/dL (6.0-8.3); Sodium 136 mmol/L (136-145)
[2018-03-30 18:38] LABS: CKMB 4.1 ng/mL (0-6.6); Troponin I Less than 0.010 ng/mL (< 0.028)
== END 2018-03-30 19:01 | disposition home or self-care (01) ==
LOC: ERS 17:42
DX: D64.9 Anemia, unspecified (principal); N28.9 Disorder of kidney and ureter, unspecified; I48.91 Unspecified atrial fibrillation; E11.9 Type 2 diabetes mellitus without complications; I11.0 Hypertensive heart disease with heart failure; I50.9 Heart failure, unspecified; Z79.82 Long term (current) use of aspirin; Z79.84 Long term (current) use of oral hypoglycemic drugs; Z79.899 Other long term (current) drug therapy; Z79.891 Long term (current) use of opiate analgesic
CPT/HCPCS: 80053; 82274; 82553; 84484; 85025; 85610; 85730; 93005

== ENCOUNTER 2018-05-02 16:07 | Outpatient (CLI) | payer MEDICARE ==
--- NOTE | 2018-05-02 19:05 | ULT ---
RIGHT LOWER EXTREMITY VENOUS ULTRASOUND WITH DOPPLER: 05/02/18 HISTORY: Right leg edema and swelling. COMPARISON: None. TECHNIQUE: Jacobs scale, color flow, doppler imaging with spectral waveform analysis performed in the right lower extremity venous system. FINDINGS: There is compressibility, presence of flow and augmentation in the common femoral vein, femoral vein, and popliteal vein. There is flow in the greater saphenous vein, profunda vein and posterior tibial vein. IMPRESSION: No evidence of thrombus in the right lower extremity deep venous system. POS: JES
== END 2018-05-02 16:08 | disposition home or self-care (01) ==
LOC: ULT 16:07
PROVIDERS: ATTEND Family Medicine
DX: R60.0 Localized edema (principal); N18.9 Chronic kidney disease, unspecified; D63.1 Anemia in chronic kidney disease
CPT/HCPCS: 36415; 80048; 81003; 82306; 82570; 83970; 84100; 84156; 85025; 86038; 86225

== ENCOUNTER 2018-12-11 10:25 | Outpatient (CLI) | payer MEDICARE ==
--- NOTE | 2018-12-11 14:09 | NM ---
Nuclear medicine parathyroid scan SPECT and CT: DATE: 12/11/2018 HISTORY: 88-year-old female with hyperparathyroidism and hypercalcemia. TECHNIQUE: IV injection of 27.5 mCi of technetium 99m-sestamibi. Planar scintigraphic views of the chest, neck, and head, in 3 views, immediately, at 1 hour, and at 2 hours. SPECT images of lower head, neck, and upper chest performed in sagittal, coronal, and axial planes. Noncontrast CT performed through same levels. SPECT-CT fusion images reviewed on workstation. FINDINGS: Visible only on a single axial SPECT-CT fusion image, and a single coronal SPECT-CT fusion image, the re is a tiny, approximately 5 mm soft tissue density nodule very close to, but external to, the lower pole of the right lobe of the thyroid gland, which has faint, mild sestamibi uptake. This is no t visible on any of the planar scintigraphic images. This is questionable for a tiny parathyroid adenoma. There are no other candidates for parathyroid adenoma. IMPRESSION: Questionable tiny 5 mm parathyroid adenoma slightly inferior and posterior to the lower pole of the r ight lobe of the thyroid gland. Recommend further evaluation with dedicated multiphase parathyroid protocol CT neck with and without contrast.
== END 2018-12-11 10:26 | disposition home or self-care (01) ==
LOC: NM 10:25
PROVIDERS: ATTEND Internal Medicine Nephrology
DX: E21.3 Hyperparathyroidism, unspecified (principal)
CPT/HCPCS: 78072; A9500

== ENCOUNTER 2019-05-14 13:40 | Inpatient (IN) | payer MEDICARE ==
[2019-05-14] MEDS ORDERED: Diltiazem 125 MG in Sodium Chloride 0.9% 100 ML IVPB SCH ×2 (14:15→16:45)
[2019-05-14] MEDS ORDERED: Aspirin Chewable 81 MG TAB ONE (16:22)
[2019-05-14] MEDS ORDERED: Dextrose 50% Abboject 50 ML SYRINGE SLOW IVP PRN (16:37)
[2019-05-14] MEDS ORDERED: HumaLOG 300 UNITS/3 ML VIAL SC PRN (16:37)
[2019-05-14] MEDS ORDERED: Dextrose 5% in Water 1,000 ML IV PRN (16:37)
[2019-05-14 17:27] VITALS: BMI 24.0
[2019-05-14] MEDS: metFORMIN 500 MG TAB PO SCH (18:25)
[2019-05-14] MEDS: Carvedilol 3.125 MG TAB PO SCH (18:35)
[2019-05-14] MEDS ORDERED: Furosemide 40 MG/4 ML VIAL SLOW IVP SCH (18:45)
[2019-05-14] MEDS: Apixaban 2.5 MG TAB PO SCH (20:27)
[2019-05-14] MEDS: Atorvastatin Calcium 40 MG TAB PO SCH (20:27)
--- NOTE | 2019-05-14 21:52 | HP ---
CHIEF COMPLAINT: Shortness of breath. HISTORY OF PRESENT ILLNESS: This patient is an 88-year-old female with a history of severe multi-vessel coronary artery disease that is not amenable to any significant intervention. She also has an ischemic cardiomyopathy with reduced ejection fraction, which is not well documented, but was adequate to require LifeVest and then defibrillator. She also has a history of atrial fibrillation, history of sinus pauses and some nonsustained ventricular tachycardia in an admission in October 2017. The patient follows with Dr. Fuller and says she saw him in March. She has been doing generally well. However, over the last couple of days, she has had increasing shortness of breath. She tried to go to [facility] on Tuesday, but could not make it through the full service, had to come home. She has some associated orthopnea. Denies cough or chest pain. Denies any peripheral edema. REVIEW OF SYSTEMS: All systems reviewed. Primary notable concern was just generalized fatigue. PAST MEDICAL HISTORY: As noted above, significant for severe multi-vessel occlusive coronary disease not amenable to significant intervention because of associated risk. She has ischemic cardiomyopathy. She has history of hypothyroidism, diabetes mellitus, atrial fibrillation, history of diastolic heart failure, hypertension. PAST SURGICAL HISTORY: Appendectomy, hysterectomy, spinal surgeries and defibrillator placement in February 2018. FAMILY HISTORY: Her mother had heart problems. She has a brother, who had some sort of heart surgery. She has had two sons who have had "heart aneurysms". SOCIAL HISTORY: Nonsmoker, nondrinker, nondrug user. She is . She lives with her . She is full code. Her surrogate decision makers would be her or her daughter should that become necessary. ALLERGIES: NONE. CURRENT MEDICATIONS: 1. Metformin 500 mg b.i.d. 2. Isosorbide mononitrate 30 mg p.o. daily. 3. Lasix 40 mg b.i.d. 4. Aspirin 81 mg daily. 5. Losartan 100 mg daily. 6. Atorvastatin 40 mg daily. 7. Levothyroxine 75 mcg daily. 8. Carvedilol 3.125 mg p.o. t.i.d. 9. Eliquis 2.5 mg b.i.d. PHYSICAL EXAMINATION: VITAL SIGNS: Most recent BP 131/76, pulse 75, respirations 15, temperature 98.1, O2 saturations 99% on 2 L. GENERAL APPEARANCE: Age-appropriate female, in no distress. She is awake, alert, pleasant, cooperative HEENT: PERRL. No OP lesions. NECK: Supple and symmetric with mild JVD present. HEART: Irregular without a significant murmur noted. LUNGS: Diminished breath sounds at both bases, but no wheezes or rales. ABDOMEN: Soft, nontender, and nondistended with positive bowel sounds. EXTREMITIES: No cyanosis, clubbing, or edema. Slightly diminished peripheral pulses. PSYCHIATRIC: Normal affect and behavior. NEUROLOGIC: Normal cranial nerve function. Normal cognition. She moves all extremities spontaneously with no evidence of focal deficits. LABORATORY DATA: White count 5.6, hemoglobin 9.9, platelets 257. Sodium 138, potassium 3.8, chloride 102, CO2 20, BUN 40, creatinine is 1.88, glucose 157, calcium 8.9, total bilirubin 1.3, AST 28, ALT 18. Troponin 0.025. BNP is 2186.6. Chest x-ray shows evidence of congestive heart failure, cardiomegaly, pulmonary vascular congestion, bilateral pleural effusions, right greater than left, and AICD in place. EKG shows atrial fibrillation with controlled response, concern for some mild lateral ischemia. HOSPITAL COURSE: The patient initially presented to the emergency department in [place], where she was diagnosed with decompensated congestive heart failure and atrial fibrillation with rapid ventricular response. Her rate was 102. She received a dose of Lasix 40 mg IV and diltiazem 20 mg IV push in the emergency department here. She has been started on a low-dose Cardizem drip to maintain rate control. The patient says she is feeling a bit better presently. IMPRESSION AND PLAN: 1. Decompensated systolic congestive heart failure. The patient's EF was clearly low from ischemic cardiomyopathy previously, but the number was not well documented. We will repeat an echocardiogram. She also had evidence of prior diastolic dysfunction and this certainly may be a combined systolic and diastolic failure decompensation. Again, the echo will help elucidate that. She has received a dose of IV Lasix. We will continue with IV Lasix, give her a second dose tonight and start at b.i.d. IV tomorrow. We will consult Cardiology as well. 2. Atrial fibrillation with rapid ventricular response. The patient's rate was not significantly elevated that I can tell. It appears as though she is well rate controlled presently. She is already on Eliquis. 3. Hypertension. We will continue with her usual home regimen with losartan, carvedilol, and isosorbide. 4. Diabetes mellitus. Continue metformin, Accu-Cheks, and sliding scale. 5. Hypothyroidism. Continue with her home dose of levothyroxine. 6. Deep venous thrombosis prophylaxis is accomplished with her p.o. Franki. Job ID: [id number]
[2019-05-15 05:34] LABS: Anion Gap 15 mmol/L (10-20); BUN (Urea Nitrogen) 37 mg/dL (9.8-20.1); Calc. Creatinine Clearance 23 mL/min (70-130); Calcium 9.7 mg/dL (7.8-10.44); Carbon Dioxide 30 mmol/L (23-31); Chloride 99 mmol/L (98-107); Estimated GFR-MDRD 30; Glucose 78 mg/dL (83-110); Sodium 141 mmol/L (136-145)
[2019-05-15 05:36] LABS: Potassium 2.9 mmol/L (3.5-5.1)
[2019-05-15] MEDS ORDERED: Furosemide 40 MG/4 ML VIAL SLOW IVP SCH (06:00)
[2019-05-15] MEDS ORDERED: Potassium Chloride 20 MEQ TAB PO SCH ×2 (06:15→09:15)
[2019-05-15] MEDS: Levothyroxine Sodium 75 MCG TAB PO SCH (06:25)
[2019-05-15] MEDS: Carvedilol 3.125 MG TAB PO SCH ×2 (08:40→17:47)
[2019-05-15] MEDS: metFORMIN 500 MG TAB PO SCH (08:42)
[2019-05-15] MEDS: Apixaban 2.5 MG TAB PO SCH ×2 (08:43→21:05)
[2019-05-15] MEDS: Aspirin 81 mg Enteric Coated Tablet PO SCH (08:43)
[2019-05-15] MEDS: Isosorbide Mononitrate (ER) 30 MG TAB PO SCH (08:44)
[2019-05-15] MEDS: Potassium Chloride 20 MEQ TAB PO SCH ×2 (08:44→21:04)
[2019-05-15] MEDS ORDERED: Losartan 25 MG TAB PO SCH (09:00)
--- NOTE | 2019-05-15 16:04 | PDOC.HOSPP ---
- Subjective Encounter Date: 05/15/19 Encounter Time: 09:45 Subjective: pt up in chair feels well, family at bedside - Objective Vital Signs & Weight: Vital Signs (12 hours) Temp Pulse Resp BP Pulse Ox 05/15/19 11:23 97.9 F 102 H 14 126/63 98 05/15/19 07:28 98.3 F 94 14 139/63 98 Weight Weight 126 lb 14.4 oz I&O: 05/14/19 05/15/19 05/16/19 06:59 06:59 06:59 Intake Total 1310 Output Total 3000 Balance -1690 Result Diagrams: 05/15/19 04:28 Additional Labs: Accuchecks 05/15/19 05/14/19 10:36 20:13 POC Glucose 127 H 180 H Hospitalist ROS - Review of Systems Respiratory: denies: cough, dry, shortness of breath, hemoptysis, SOB with excertion, pleuritic pain, sputum, wheezing, other Cardiovascular: denies: chest pain, palpitations, orthopnea, paroxysmal noc. dyspnea, edema, light headedness, other Gastrointestinal: denies: nausea, vomiting, abdominal pain, diarrhea, constipation, melena, hematochezia, other - Medication Medications: Active Medications Generic Name Dose Route Start Last Admin Trade Name Freq PRN Reason Stop Dose Admin Apixaban 2.5 mg 05/14/19 21:00 05/15/19 08:43 Eliquis PO 2.5 mg BID JOSE Administration Aspirin 81 mg 05/15/19 09:00 05/15/19 08:43 Ecotrin PO 81 mg DAILY JOSE Administration Atorvastatin Calcium 40 mg 05/14/19 21:00 05/14/19 20:27 Lipitor PO 40 mg HS JOSE Administration Carvedilol 3.125 mg 05/14/19 17:00 05/15/19 08:40 Coreg PO 3.125 mg BID-WM JOSE Administration Isosorbide Mononitrate 30 mg 05/15/19 09:00 05/15/19 08:44 Imdur Er PO 30 mg DAILY JOSE Administration Levothyroxine Sodium 75 mcg 05/15/19 06:00 05/15/19 06:25 Synthroid PO 75 mcg 0600 JOSE Administration Losartan Potassium 100 mg 05/15/19 09:00 05/15/19 08:44 Cozaar PO 100 mg DAILY JOSE Administration Metformin HCl 500 mg 05/14/19 17:00 05/15/19 08:42 Glucophage PO Not Given BID-WM JOSE Potassium Chloride 40 meq 05/15/19 09:00 05/15/19 08:44 K-Dur PO 40 meq BID JOSE Administration - Exam Neck: negative: supple, symmetric, no JVD, no thyromegaly, no lymphadenopathy, no carotid bruit, JVD Heart: negative: RRR, no murmur, no gallops, no rubs, normal peripheral pulses, irregular, diminshed peripheral pulses, murmur present, II/IV, III/IV Respiratory: negative: CTAB, no wheezes, no rales, no ronchi, normal chest expansion, no tachypnea, normal percussion, rales, rhonchi, tachypneic, wheezes Hosp A/P (1) Afib Code(s): I48.91 - UNSPECIFIED ATRIAL FIBRILLATION Status: Acute (2) DM type 2 (diabetes mellitus, type 2) Status: Acute (3) HTN (hypertension) Code(s): I10 - ESSENTIAL (PRIMARY) HYPERTENSION Status: Acute (4) Systolic heart failure Code(s): I50.20 - UNSPECIFIED SYSTOLIC (CONGESTIVE) HEART FAILURE Status: Acute Qualifiers: Heart failure chronicity: acute on chronic Qualified Code(s): I50.23 - Acute on chronic systolic (congestive) heart failure (5) Hypokalemia Code(s): E87.6 - HYPOKALEMIA Status: Acute - Plan will continue Lasix for now, cardiology consulted. echo ordered. will replace K
[2019-05-15] MEDS: Atorvastatin Calcium 40 MG TAB PO SCH (21:04)
[2019-05-15] MEDS: Acetaminophen 325 MG TAB PO PRN (21:05)
[2019-05-16] MEDS: tiZANidine HCl 4 MG TAB PO PRN ×2 (00:18→23:27)
[2019-05-16] MEDS: Levothyroxine Sodium 75 MCG TAB PO SCH (04:38)
[2019-05-16 06:50] LABS: Anion Gap 13 mmol/L (10-20); BUN (Urea Nitrogen) 40 mg/dL (9.8-20.1); Calc. Creatinine Clearance 21 mL/min (70-130); Calcium 9.2 mg/dL (7.8-10.44); Carbon Dioxide 27 mmol/L (23-31); Chloride 105 mmol/L (98-107); Estimated GFR-MDRD 28; Glucose 100 mg/dL (83-110); Potassium 4.5 mmol/L (3.5-5.1); Sodium 140 mmol/L (136-145)
[2019-05-16] MEDS: Isosorbide Mononitrate (ER) 30 MG TAB PO SCH (08:28)
[2019-05-16] MEDS: Carvedilol 3.125 MG TAB PO SCH ×2 (08:28→17:03)
[2019-05-16] MEDS: Apixaban 2.5 MG TAB PO SCH ×2 (08:28→22:01)
[2019-05-16] MEDS: Furosemide 40 MG/4 ML VIAL SLOW IVP SCH (08:28)
[2019-05-16] MEDS: Aspirin 81 mg Enteric Coated Tablet PO SCH (08:28)
[2019-05-16] MEDS: Potassium Chloride 20 MEQ TAB PO SCH ×2 (08:28→22:01)
--- NOTE | 2019-05-16 09:09 | CON ---
DATE OF CONSULTATION: REASON FOR CONSULTATION: Acute on chronic systolic heart failure. HISTORY OF PRESENT ILLNESS: Ms. Jackson is a pleasant 88-year-old woman, whom I have seen and evaluated in the past. She has a history of ischemic cardiomyopathy in addition to a severe underlying coronary artery disease. She is status post ICD. She states recently she had difficulty with shortness of breath. No chest pain or pressure noted. No lower extremity edema present. She presented to the emergency room with the above. She states she wanted some relief, but did not feel she needed to be admitted. She was therefore subsequently admitted. She was found to have bilateral pleural effusions, but did not appear to be markedly enlarged. It did appear worse than her previous study. PAST MEDICAL HISTORY: Reviewed and as above, including hypothyroidism, diabetes mellitus, atrial fibrillation, hypertension, appendectomy, and hysterectomy. SOCIAL HISTORY: No current tobacco or alcohol use. ALLERGIES: NONE. HOME MEDICATIONS: Include; 1. Metformin. 2. Isosorbide. 3. Lasix. 4. Aspirin. 5. Losartan. 6. Atorvastatin. 7. Carvedilol. 8. Eliquis. REVIEW OF SYSTEMS: A 10-point review of systems is reviewed as above, otherwise negative. PHYSICAL EXAMINATION: GENERAL: Patient is a pleasant woman who is in no acute distress. The patient appears their stated age. VITAL SIGNS: Blood pressure 104/59, pulse 74, and temperature afebrile. NEUROLOGIC: The patient is alert and oriented x3 with no focal neurologic deficits. HEENT: Sclerae without icterus. Mouth has moist mucous membranes with normal pallor. NECK: No JVD. Carotid upstroke brisk. No bruits bilaterally. LUNGS: Clear to auscultation with unlabored respirations. BACK: No scoliosis or kyphosis. CARDIAC: Irregularly irregular. ABDOMEN: Soft, nontender, nondistended. No peritoneal signs present. No hepatosplenomegaly. No abnormal striae. EXTREMITIES: 2+ femoral and 2+ dorsalis pedis pulses. No cyanosis, clubbing, or edema. SKIN: No gross abnormalities. PERTINENT LABORATORY DATA: Creatinine 1.62, potassium 2.9, and sodium 141. IMPRESSION: 1. Acute on chronic systolic heart failure. 2. Ischemic cardiomyopathy. 3. Severe coronary artery disease. 4. Atrial fibrillation. RECOMMENDATIONS: 1. We would recommend diuresis. 2. Continue outpatient medications. 3. Her effusions do not appear large enough for thoracentesis. 4. Recommend 24-hour observation. We would continue Lasix and plan on discharge in a.m. 5. The patient states she would like to go home today, but feels she would need another 24 hours prior to discharge. 6. Continue Eliquis, aspirin, atorvastatin, and carvedilol. 7. Otherwise, I have no further recommendations. We will follow up as an outpatient. Job ID: [id number]
--- NOTE | 2019-05-16 18:40 | PDOC.HOSPP ---
- Subjective Encounter Date: 05/16/19 Encounter Time: 11:30 Subjective: pt up in bed feels well - Objective Vital Signs & Weight: Vital Signs (12 hours) Temp Pulse Resp BP Pulse Ox 05/16/19 15:32 97.5 F L 66 14 95/50 L 99 05/16/19 13:00 94/50 L 05/16/19 11:26 97.4 F L 69 16 84/51 L 97 05/16/19 08:00 97 05/16/19 07:43 97 05/16/19 07:25 97.6 F 72 14 101/56 L 97 Weight Weight 128 lb 1.6 oz I&O: 05/15/19 05/16/19 05/17/19 06:59 06:59 06:59 Intake Total 1310 1710 1350 Output Total 3000 400 Balance -1690 1310 1350 Result Diagrams: 05/16/19 04:36 Additional Labs: Accuchecks 05/16/19 05/16/19 05/15/19 16:41 10:45 21:16 POC Glucose 133 H 161 H 145 H Hospitalist ROS - Review of Systems Cardiovascular: denies: chest pain, palpitations, orthopnea, paroxysmal noc. dyspnea, edema, light headedness, other Gastrointestinal: denies: nausea, vomiting, abdominal pain, diarrhea, constipation, melena, hematochezia, other Genitourinary: denies: dysuria, frequency, incontinence, hematuria, retention, other - Medication Medications: Active Medications Generic Name Dose Route Start Last Admin Trade Name Freq PRN Reason Stop Dose Admin Acetaminophen 650 mg 05/15/19 20:53 05/15/19 21:05 Tylenol PO 650 mg Q6H PRN Administration Headache/Fever or Pain Apixaban 2.5 mg 05/14/19 21:00 05/16/19 08:28 Eliquis PO 2.5 mg BID JOSE Administration Aspirin 81 mg 05/15/19 09:00 05/16/19 08:28 Ecotrin PO 81 mg DAILY JOSE Administration Atorvastatin Calcium 40 mg 05/14/19 21:00 05/15/19 21:04 Lipitor PO 40 mg HS JOSE Administration Carvedilol 3.125 mg 05/14/19 17:00 05/16/19 17:03 Coreg PO 3.125 mg BID-WM JOSE Administration Furosemide 40 mg 05/16/19 09:00 05/16/19 08:28 Lasix SLOW IVP 40 mg DAILY JOSE Administration Isosorbide Mononitrate 30 mg 05/15/19 09:00 05/16/19 08:28 Imdur Er PO 30 mg DAILY JOSE Administration Levothyroxine Sodium 75 mcg 05/15/19 06:00 05/16/19 04:38 Synthroid PO 75 mcg 0600 JOSE Administration Losartan Potassium 100 mg 05/15/19 09:00 05/15/19 08:44 Cozaar PO 100 mg DAILY JOSE Administration Metformin HCl 500 mg 05/14/19 17:00 05/15/19 08:42 Glucophage PO Not Given BID-WM JOSE Potassium Chloride 40 meq 05/15/19 09:00 05/16/19 08:28 K-Dur PO 40 meq BID JOSE Administration Tizanidine HCl 4 mg 05/16/19 00:06 05/16/19 00:18 Zanaflex PO 4 mg Q12H PRN Administration Restlessness - Exam Neck: negative: supple, symmetric, no JVD, no thyromegaly, no lymphadenopathy, no carotid bruit, JVD Heart: negative: RRR, no murmur, no gallops, no rubs, normal peripheral pulses, irregular, diminshed peripheral pulses, murmur present, II/IV, III/IV Respiratory: negative: CTAB, no wheezes, no rales, no ronchi, normal chest expansion, no tachypnea, normal percussion, rales, rhonchi, tachypneic, wheezes Hosp A/P (1) Afib Code(s): I48.91 - UNSPECIFIED ATRIAL FIBRILLATION Status: Acute (2) Mitral regurgitation Status: Acute (3) DM type 2 (diabetes mellitus, type 2) Status: Acute (4) HTN (hypertension) Code(s): I10 - ESSENTIAL (PRIMARY) HYPERTENSION Status: Acute (5) Systolic heart failure Code(s): I50.20 - UNSPECIFIED SYSTOLIC (CONGESTIVE) HEART FAILURE Status: Acute Qualifiers: Heart failure chronicity: acute on chronic Qualified Code(s): I50.23 - Acute on chronic systolic (congestive) heart failure (6) Hypokalemia Code(s): E87.6 - HYPOKALEMIA Status: Acute (7) MARÍA (acute kidney injury) Code(s): N17.9 - ACUTE KIDNEY FAILURE, UNSPECIFIED Status: Acute (8) Acute on chronic systolic (congestive) heart failure Code(s): I50.23 - ACUTE ON CHRONIC SYSTOLIC (CONGESTIVE) HEART FAILURE Status : Acute - Plan will continue Lasix for now, cardiology consulted. echo ordered. will replace K 05/16 will hold hiral and metformin will monitor. vitals stable. will continue lasix for now. echo shows sever MRClifford pt's ef is low no prior echo for comparison.
[2019-05-16] MEDS: Atorvastatin Calcium 40 MG TAB PO SCH (22:01)
[2019-05-16] MEDS: Acetaminophen 325 MG TAB PO PRN (22:03)
[2019-05-17 05:00] LABS: Hemoglobin 9.4 g/dL (12.0-16.0); Platelet Count 240 thou/uL (130-400)
[2019-05-17 05:16] LABS: Anion Gap 11 mmol/L (10-20); BUN (Urea Nitrogen) 40 mg/dL (9.8-20.1); Calc. Creatinine Clearance 22 mL/min (70-130); Calcium 9.1 mg/dL (7.8-10.44); Carbon Dioxide 27 mmol/L (23-31); Chloride 104 mmol/L (98-107); Estimated GFR-MDRD 29; Glucose 101 mg/dL (83-110); Potassium 5.2 mmol/L (3.5-5.1); Sodium 137 mmol/L (136-145)
[2019-05-17] MEDS: Levothyroxine Sodium 75 MCG TAB PO SCH (06:36)
[2019-05-17] MEDS: Furosemide 40 MG/4 ML VIAL SLOW IVP SCH (09:14)
[2019-05-17] MEDS: Aspirin 81 mg Enteric Coated Tablet PO SCH (09:14)
[2019-05-17] MEDS: Apixaban 2.5 MG TAB PO SCH ×2 (09:14→21:32)
[2019-05-17] MEDS: Isosorbide Mononitrate (ER) 30 MG TAB PO SCH (09:14)
[2019-05-17] MEDS: Carvedilol 3.125 MG TAB PO SCH (09:14)
[2019-05-17] MEDS ORDERED: Carvedilol 6.25 MG TAB PO SCH (13:30)
[2019-05-17] MEDS ORDERED: Carvedilol 25 MG TAB PO SCH ×2 (17:00)
[2019-05-17] MEDS ORDERED: traMADol HCl 50 MG TAB PO PRN (18:32)
[2019-05-17] MEDS: Carvedilol 25 MG TAB PO SCH (21:31)
[2019-05-17] MEDS: Atorvastatin Calcium 40 MG TAB PO SCH (21:32)
--- NOTE | 2019-05-18 05:43 | PDOC.HOSPP ---
- Subjective Encounter Date: 05/17/19 Encounter Time: 11:30 Subjective: pt up in bed no complains, feels well. When pt ambulated her HR increased to 112 -117 - Objective Vital Signs & Weight: Vital Signs (12 hours) Temp Pulse Resp BP BP Pulse Ox 05/18/19 04:00 98.7 F 87 18 143/71 H 96 05/17/19 19:00 98.4 F 90 18 135/63 98 05/17/19 18:56 98 Weight Weight 127 lb 1.6 oz I&O: 05/16/19 05/17/19 05/18/19 06:59 06:59 06:59 Intake Total 1710 1830 840 Output Total 400 1350 Balance 1310 1830 -510 Result Diagrams: 05/17/19 04:33 05/17/19 04:33 Additional Labs: Accuchecks 05/17/19 05/17/19 05/17/19 20:15 10:55 05:45 POC Glucose 145 H 144 H 107 Hospitalist ROS - Review of Systems Respiratory: denies: cough, dry, shortness of breath, hemoptysis, SOB with excertion, pleuritic pain, sputum, wheezing, other Cardiovascular: denies: chest pain, palpitations, orthopnea, paroxysmal noc. dyspnea, edema, light headedness, other Gastrointestinal: denies: nausea, vomiting, abdominal pain, diarrhea, constipation, melena, hematochezia, other - Medication Medications: Active Medications Generic Name Dose Route Start Last Admin Trade Name Freq PRN Reason Stop Dose Admin Acetaminophen 650 mg 05/15/19 20:53 05/16/19 22:03 Tylenol PO 650 mg Q6H PRN Administration Headache/Fever or Pain Apixaban 2.5 mg 05/14/19 21:00 05/17/19 21:32 Eliquis PO 2.5 mg BID JOSE Administration Aspirin 81 mg 05/15/19 09:00 05/17/19 09:14 Ecotrin PO 81 mg DAILY JOSE Administration Atorvastatin Calcium 40 mg 05/14/19 21:00 05/17/19 21:32 Lipitor PO 40 mg HS JOSE Administration Carvedilol 12.5 mg 05/17/19 20:00 05/17/19 21:31 Coreg PO 12.5 mg BID-WM JOSE Administration Isosorbide Mononitrate 30 mg 05/15/19 09:00 05/17/19 09:14 Imdur Er PO 30 mg DAILY JOSE Administration Levothyroxine Sodium 75 mcg 05/15/19 06:00 05/17/19 06:36 Synthroid PO 75 mcg 0600 JOSE Administration Losartan Potassium 100 mg 05/15/19 09:00 05/15/19 08:44 Cozaar PO 100 mg DAILY JOSE Administration Metformin HCl 500 mg 05/14/19 17:00 05/15/19 08:42 Glucophage PO Not Given BID-[facility] Tizanidine HCl 4 mg 05/16/19 00:06 05/16/19 23:27 Zanaflex PO 4 mg Q12H PRN Administration Restlessness Tramadol HCl 50 mg 05/17/19 18:32 05/17/19 21:32 Ultram PO 50 mg Q8H PRN Administration Pain - Exam Heart: negative: RRR, no murmur, no gallops, no rubs, normal peripheral pulses, irregular, diminshed peripheral pulses, murmur present, II/IV, III/IV Respiratory: negative: CTAB, no wheezes, no rales, no ronchi, normal chest expansion, no tachypnea, normal percussion, rales, rhonchi, tachypneic, wheezes Gastrointestinal: negative: soft, non-tender, non-distended, normal bowel sounds , no palpable masses, no hepatomegaly, no splenomegaly, no bruit, no guarding, no rigidity, tender to palpation, distended, diminished bowl sounds, voluntary guarding Extremities: negative: no cyanosis, no clubbing, no edema, 1+ LE edema, 2+ LE edema, clubbing Hosp A/P (1) Afib Code(s): I48.91 - UNSPECIFIED ATRIAL FIBRILLATION Status: Acute (2) Mitral regurgitation Status: Acute (3) DM type 2 (diabetes mellitus, type 2) Status: Acute (4) HTN (hypertension) Code(s): I10 - ESSENTIAL (PRIMARY) HYPERTENSION Status: Acute (5) Systolic heart failure Code(s): I50.20 - UNSPECIFIED SYSTOLIC (CONGESTIVE) HEART FAILURE Status: Acute Qualifiers: Heart failure chronicity: acute on chronic Qualified Code(s): I50.23 - Acute on chronic systolic (congestive) heart failure (6) Hypokalemia Code(s): E87.6 - HYPOKALEMIA Status: Acute (7) MARÍA (acute kidney injury) Code(s): N17.9 - ACUTE KIDNEY FAILURE, UNSPECIFIED Status: Acute (8) Acute on chronic systolic (congestive) heart failure Code(s): I50.23 - ACUTE ON CHRONIC SYSTOLIC (CONGESTIVE) HEART FAILURE Status : Acute - Plan will continue Lasix for now, cardiology consulted. echo ordered. will replace K 05/16 will hold tavo and metformin will monitor. vitals stable. will continue lasix for now. echo shows sever MR. vega's ef is low no prior echo for comparison. 05/17 spoke with cardio and will increase her coreg to 12.5 bid for better rate control. will stop her K pills and check bmp in am. will switch her lasix iv to po. given her low ef and MR i want her hr on ambulation to be controlled. i will continue to hold her losartan due to her labile bp. May consider starting a lower dose of TAVO.
[2019-05-18 06:14] LABS: Anion Gap 15 mmol/L (10-20); BUN (Urea Nitrogen) 36 mg/dL (9.8-20.1); Calc. Creatinine Clearance 23 mL/min (70-130); Calcium 9.6 mg/dL (7.8-10.44); Carbon Dioxide 20 mmol/L (23-31); Chloride 106 mmol/L (98-107); Estimated GFR-MDRD 31; Glucose 145 mg/dL (83-110); Potassium 5.2 mmol/L (3.5-5.1); Sodium 136 mmol/L (136-145)
[2019-05-18] MEDS: Levothyroxine Sodium 75 MCG TAB PO SCH (06:34)
[2019-05-18] MEDS ORDERED: Furosemide 20 MG TAB PO SCH (07:30)
[2019-05-18] MEDS: Isosorbide Mononitrate (ER) 30 MG TAB PO SCH (08:16)
[2019-05-18] MEDS: Apixaban 2.5 MG TAB PO SCH (08:17)
[2019-05-18] MEDS: Carvedilol 25 MG TAB PO SCH (08:17)
[2019-05-18] MEDS: Aspirin 81 mg Enteric Coated Tablet PO SCH (08:18)
[2019-05-18] MEDS ORDERED: Losartan 25 MG TAB PO SCH (09:00)
[2019-05-18 10:17] LABS: Hemoglobin A1c 6.5 % (4.0-6.0)
[2019-05-18 11:37] VITALS: TEMP 97.6
[2019-05-18 12:22] VITALS: BP 123/60
--- NOTE | 2019-05-20 21:33 | DIS ---
DATE OF ADMISSION: 05/15/2019 DATE OF DISCHARGE: 05/18/2019 DISCHARGE DIAGNOSES: 1. Shortness of breath, most likely secondary to acute on chronic systolic heart failure. 2. Severe mitral regurgitation. 3. History of . 4. Hypertension. 5. Acute kidney injury. 6. Atrial fibrillation. 7. Diabetes. HOSPITAL COURSE: The patient is an 88-year-old female who initially presented to the hospital on 05/14, with complaints of shortness of breath. She did have significant amount of pulmonary congestion. She underwent diuresis with IV. She also was seen by Cardiology and we ordered an echocardiogram since there was no prior echocardiogram in the computer. EF of 15% to 20% was noted. She does have an ICD. She also was noted to have moderate to severe mitral regurgitation and moderate aortic regurgitation and moderate tricuspid regurgitation. This was explained to the patient and the patient's family. Her symptoms continued to improve and potassium was replaced. Her potassium actually on discharge was 5.2. She initially was put on losartan, which was held. Her potassium still continued to be 5.2. Her hemoglobin A1c was 6.5. The patient felt much better. Her Coreg was titrated since she became tachycardic on ambulation. I did speak with the Cardiology, who recommended that. DISCHARGE HOME MEDICATIONS: Will be as of the followin. Glimepiride one p.o. daily. 2. Levothyroxine 75 mcg daily. 3. Isosorbide 30 mg daily. 4. Atorvastatin 40 mg daily. 5. Aspirin 81 mg daily. 6. Eliquis 2.5 b.i.d. 7. Coreg 12.5 b.i.d. instead of 3.125 b.i.d. 8. Tramadol as needed. 9. She will also go home with Lasix, but it will only be 20 mg instead of 40 mg. I will hold off starting her on TAVO since her potassium has been high at 5.2. I recommend following up with blood work next week and if her potassium is okay, she can go ahead and restart the losartan by her primary. PHYSICAL EXAMINATION: VITAL SIGNS: Temperature 97.6, pulse 76, respirations 16, 98% on room air, blood pressure 119/65. GENERAL: She is awake, alert, and oriented x3. Does not appear in any distress. CV: S1 and S2 present. No murmurs, rubs, or gallops. ABDOMEN: Soft, nontender. Bowel sounds are present x2. I have educated her in regard to low-salt diet and also water restrictions and the patient is aware. Job ID: [id number]
--- NOTE | 2019-05-21 10:21 | PQF ---
FLORA CUMMINS KARISHMA [id number] [facility]-233 [id number] CLINICAL DOCUMENTATION CLARIFICATION FORM: POST DISCHARGE Addendum to original discharge summary date: ____ Late entry note date: __ DATE:05/21/2019 ATTN:JULIA MARROQUIN Please exercise your independent, professional judgment in responding to the clarification form. Clinical indicators are provided on the bottom of this form for your review Please check appropriate box(s): [ ] CKD please specify Stage of CKD [ ] ESRD [ ] Other diagnosis [ ] Unable to determine National Kidney Foundation Guidelines for CKD Staging Stage I Kidney damage with normal or increased GFRGFR > 90 Stage IIKidney damage with mildly decreased GFRGFR 60-89 Stage III Kidney damage with moderately decreased GFRGFR 30-59 Stage IVKidney damage with severely decreased GFRGFR 16-29 Stage VKidney failureGFR<15 ESRDEnd Stage Renal DiseaseOn dialysis For continuity of documentation, please document condition throughout progress notes and discharge summary. Thank You. CLINICAL INDICATORS - SIGNS / SYMPTOMS / LABS Chronic kidney disease unspecified-Documenetd in ED on 05/15 by Jennie Hicks BUN-36,GFR-31,Creatinine-1.56-Documented in Laboratory MARÍA-Documented in DS on 05/18 by Julia Marroquin Acute on chronic systolic heart failure-Documented in DS on 05/18 by Julia Marroquin RISK FACTORS HTN-Documented in DS on 05/18 by Julia Marroquin DM-Documented in DS on 05/18 by Julia Marroquin MARÍA-Documented in DS on 05/18 by Julia Marroquin TREATMENTS: Dextrose 5% 1000 ml IV-Documented in Medication snapshot Lasix 40 mg IVP-Documented in Medication snapshot [employer] Winform Viewer (This form is maintained as a part of the permanent medical record) 2014 [employer]. All Rights Reserved [email or web address] [not provided] MTDD
== END 2019-05-18 14:41 | disposition home or self-care (01) | DRG 291 ==
LOC: ERS 13:40 → 2SW 14:20 → OBSVTOIN 05-15 13:25 → 2NO 05-16 18:01
PROVIDERS: ADMIT Internal Medicine; ATTEND Internal Medicine
DX: I13.0 Hypertensive heart and chronic kidney disease with heart failure and stage 1 through stage 4 chronic kidney disease, or unspecified chronic kidney disease (principal); I50.23 Acute on chronic systolic (congestive) heart failure; N17.9 Acute kidney failure, unspecified; E11.9 Type 2 diabetes mellitus without complications; I48.91 Unspecified atrial fibrillation; I08.3 Combined rheumatic disorders of mitral, aortic and tricuspid valves; I25.10 Atherosclerotic heart disease of native coronary artery without angina pectoris; Z90.710 Acquired absence of both cervix and uterus; E03.9 Hypothyroidism, unspecified; D64.9 Anemia, unspecified; N18.9 Chronic kidney disease, unspecified; E11.22 Type 2 diabetes mellitus with diabetic chronic kidney disease; E87.6 Hypokalemia; Z95.810 Presence of automatic (implantable) cardiac defibrillator; I25.5 Ischemic cardiomyopathy
CPT/HCPCS: 36415; 36416; 80048; 83036; 83735; 85014; 85018; 85049; 93005; 93306; 93798; 96365; J1940; J3490

== ENCOUNTER 2019-06-21 13:31 | Observation (INO) | payer MEDICARE ==
--- NOTE | 2019-06-21 14:03 | RAD ---
XR Chest 1 View Portable HISTORY: Dyspnea COMPARISON: 05/14/2019 FINDINGS: The heart is enlarged. The aorta is tortuous. There is a left-sided pacemaker device. Calci fied granuloma seen at the right lung base. No lobar consolidation, pneumothoraces, jacquie pulmonary edema or pleural effusions are seen. IMPRESSION: No radiographic evidence of acute cardiopulmonary process.
[2019-06-21 14:11] LABS: #Eosinphils 0.4 thou/uL (0.0-0.7); #Lymphocytes 1.2 thou/uL (1.20-3.40); #Monocytes 0.7 thou/uL (0.11-0.59); #Neutrophils 5.6 thou/uL (1.40-6.50); %Basophils 0.4 % (0.0-1.0); %Eosinophils 4.7 % (0.0-10.0); %Lymphocytes 15.4 % (21.0-51.0); %Monocytes 8.5 % (0.0-10.0); Hemoglobin 9.5 g/dL (12.0-16.0); Mean Corpuscular HGB CONC 31.6 g/dL (32.0-36.0); Mean Corpuscular Hemoglobin 26.4 pg (27.0-31.0); Mean Corpuscular Volume 83.6 fL (78.0-98.0); Platelet Count 323 thou/uL (130-400); RBC Distribution Width 16.9 % (11.5-14.5); White Blood Cell (WBC) Count 7.8 thou/uL (4.8-10.8)
[2019-06-21 14:31] LABS: ALT (SGPT) 14 U/L (8-55); AST (SGOT) 23 U/L (5-34); Albumin 3.6 g/dL (3.4-4.8); Alkaline Phosphatase 100 U/L (40-110); Anion Gap 15 mmol/L (10-20); BUN (Urea Nitrogen) 35 mg/dL (9.8-20.1); Bilirubin, Total 0.8 mg/dL (0.2-1.2); CK (CPK) 132 U/L (29-168); Calc. Creatinine Clearance 0 mL/min (70-130); Carbon Dioxide 27 mmol/L (23-31); Chloride 95 mmol/L (98-107); Estimated GFR-MDRD 31; Globulin 3.3 g/dL (2.4-3.5); Glucose 138 mg/dL (83-110); Potassium 3.6 mmol/L (3.5-5.1); Protein, Total 6.9 g/dL (6.0-8.3); Sodium 133 mmol/L (136-145)
[2019-06-21] MEDS ORDERED: Furosemide 40 MG/4 ML VIAL ONE (15:05)
[2019-06-21 18:02] VITALS: BMI 22.8
[2019-06-21] MEDS ORDERED: Ondansetron ODT 4 MG TAB PO PRN (18:05)
[2019-06-21] MEDS ORDERED: Ondansetron PF 4 MG/2 ML Vial IVP PRN (18:05)
--- NOTE | 2019-06-21 18:12 | PDOC.HHP ---
Hospitalist HPI - History of Present Illness Cough, hypotension History of Present Illness: Ms. Jackson is a pleasant 88 year old woman who states she has had a persistent cough for the last several days. States the cough is dry. Denies any hemoptysis. No associated chest pain or sob. She attributed this to fluid overload and self medicated with lasix at home with no improvement. She is seen weekly by a home health nurse who noted she was hypotensive today and therefore prompted her to come in to the ED. She had an Echo done in 05/2019. EF was 15 to 20%. She was noted to have a moderately dilated left atrium. Diastolic function could not be assessed secondary to afib. Moderate to severe MR and moderate AR/TR present. ED Course: She was treated with 80 mg of IV Lasix. A chest xray was negative. Labs showed a BNP of 2203 Hospitalist ROS - Review of Systems Constitutional: reports: malaise. denies: fever, chills, sweats, weakness, other Eyes: denies: pain, vision change, conjunctivae inflammation, eyelid inflammation, redness, other ENT: denies: ear pain, ear discharge, nose pain, nose discharge, nose congestion , mouth pain, mouth swelling, throat pain, throat swelling, other Respiratory: reports: cough, dry. denies: shortness of breath, hemoptysis, SOB with excertion, pleuritic pain, sputum, wheezing, other Cardiovascular: denies: chest pain, palpitations, orthopnea, paroxysmal noc. dyspnea, edema, light headedness, other Gastrointestinal: denies: nausea, vomiting, abdominal pain, diarrhea, constipation, melena, hematochezia, other Genitourinary: denies: dysuria, frequency, incontinence, hematuria, retention, other Musculoskeletal: denies: neck pain, shoulder pain, arm pain, back pain, hand pain, leg pain, foot pain, other Skin: denies: rash, lesions, jeanna, bruising, other Neurological: denies: weakness, numbness, incoordination, change in speech, confusion, seizures, other Hospitalist History - Past Medical History Source: patient Cardiac: reports: AFIB, CAD, HTN, Other (ischemic cardiomyopathy, EF 15-20%) Endocrine: reports: Diabetes, Hypothyroidism - Past Surgical History Past Surgical History: reports: Appendectomy, Hysterectomy, Other (spinal surgery defibrillator placement) - Family History Family History: reports: cardiac disorder - Social History Smoking Status: Never smoker Alcohol: reports: None Drugs: reports: none Living Situation: With Family Activity level: independent ambulation (uses cane for long distances) - Exam General Appearance: NAD, awake alert Eye: PERRL, anicteric sclera ENT: normocephalic atraumatic, no oropharyngeal lesions, dry oral mucosa Neck: supple, symmetric, no lymphadenopathy Heart: irregular Respiratory: rales (at the bilateral bases) Gastrointestinal: soft, non-tender, non-distended, normal bowel sounds, no guarding, no rigidity Extremities: no edema Skin: no lesions, no rashes Neurological: cranial nerve grossly intact, normal sensation to touch, no weakness, no focal deficits Musculoskeletal: normal tone Psychiatric: normal affect, normal behavior, A&O x 3 Hospitalist Results - Labs Result Diagrams: 06/21/19 13:56 06/21/19 13:56 Lab results: WBC 7.8 thou/uL (4.8-10.8) 06/21/19 13:56 Hgb 9.5 g/dL (12.0-16.0) L 06/21/19 13:56 Hct 30.1 % (36.0-47.0) L 06/21/19 13:56 MCV 83.6 fL (78.0-98.0) 06/21/19 13:56 Plt Count 323 thou/uL (130-400) 06/21/19 13:56 Neutrophils % 71.0 % (42.0-75.0) 06/21/19 13:56 Sodium 133 mmol/L (136-145) L 06/21/19 13:56 Potassium 3.6 mmol/L (3.5-5.1) 06/21/19 13:56 Chloride 95 mmol/L (98-107) L 06/21/19 13:56 Carbon Dioxide 27 mmol/L (23-31) 06/21/19 13:56 BUN 35 mg/dL (9.8-20.1) H 06/21/19 13:56 Creatinine 1.58 mg/dL (0.6-1.1) H 06/21/19 13:56 Glucose 138 mg/dL (83-110) H 06/21/19 13:56 Calcium 9.0 mg/dL (7.8-10.44) 06/21/19 13:56 Total Bilirubin 0.8 mg/dL (0.2-1.2) 06/21/19 13:56 AST 23 U/L (5-34) 06/21/19 13:56 ALT 14 U/L (8-55) 06/21/19 13:56 Alkaline Phosphatase 100 U/L (40-110) 06/21/19 13:56 Creatine Kinase 132 U/L (29-168) 06/21/19 13:56 Troponin I 0.028 ng/mL (< 0.028) 06/21/19 13:56 B-Natriuretic Peptide 2203.3 pg/mL (0-100) H 06/21/19 13:56 Serum Total Protein 6.9 g/dL (6.0-8.3) 06/21/19 13:56 Albumin 3.6 g/dL (3.4-4.8) 06/21/19 13:56 - EKG Interpretation EKG: Afib, rate controlled - Radiology Interpretation Chest x-ray Status: report reviewed by vt Hospitalist H&P A/P - Problem (1) Persistent cough Code(s): R05 - COUGH Status: Acute (2) Elevated brain natriuretic peptide (BNP) level Code(s): R79.89 - OTHER SPECIFIED ABNORMAL FINDINGS OF BLOOD CHEMISTRY Status : Acute (3) History of ischemic cardiomyopathy Code(s): Z86.79 - PERSONAL HISTORY OF OTHER DISEASES OF THE CIRCULATORY SYSTEM Status: Chronic (4) Afib Code(s): I48.91 - UNSPECIFIED ATRIAL FIBRILLATION Status: Chronic (5) DM type 2 (diabetes mellitus, type 2) Status: Chronic (6) HTN (hypertension) Code(s): I10 - ESSENTIAL (PRIMARY) HYPERTENSION Status: Chronic - Plan Plan: Will obtain CT chest to better assess for CHF vs. underlying pneumonia. Tessalon and guaifenesin for cough. Elevated BNP, given Lasix 80 mg IV, in addition to 20 mg PO taken at home. Known cardiomyopathy with an EF of 15-20%. Given renal function (GFR 30) will hold further lasix as no clinical signs of fluid overload/edema. No need to repeat Echo as it has already been done last month. Consult inpatient cardiac rehab. Monitor renal function. Consult nephrology. Monitor BP and blood glucose. Initiate sliding scale. Resume home meds once verified. Mechanical SCDs for DVT prophylaxis. GI prophylaxis with Famotidine. Walking program consulted. FULL CODE STATUS Surrogate decision maker is her Naseem Jackson.
--- NOTE | 2019-06-21 18:44 | CT ---
CT CHEST WITHOUT CONTRAST: 06/21/19 INDICATION: Persistent cough, abnormal physical exam. FINDINGS: Small left pleural effusion. There is dense infiltrate/consolidation posterior left lower lobe with h azy ground glass opacity extending into the posterior left lung base with confluent infiltrate table maker ior sulcus medially as well. Right lung shows chronic parenchymal change with some hazy atelectasis or early infiltrate in the pos terior right lung base. Mediastinum unremarkable. Upper abdomen unremarkable. Dense arterial calcifications with coronary art sonam calcifications. IMPRESSION: Small left pleural effusion. Left lower lobe infiltrate/consolidation consistent with pneumonia. POS: [facility]
[2019-06-21] MEDS ORDERED: cefTRIAXone\\ROCEPHIN 1 GM in Sodium Chloride 0.9% 100 ML IVPB SCH (20:00)
[2019-06-21 20:26] LABS: Lactic Acid 1.8 mmol/L (0.5-2.2)
[2019-06-21] MEDS ORDERED: Azithromycin 500 MG in Sodium Chloride 0.9% 250 ML 250 ML IVPB SCH (21:00)
[2019-06-21] MEDS ORDERED: Atorvastatin Calcium 40 MG TAB PO SCH (21:00)
[2019-06-21] MEDS: Apixaban 2.5 MG TAB PO SCH (22:13)
[2019-06-21] MEDS: Benzonatate 100 MG CAP PO PRN (22:13)
[2019-06-22] MEDS: guaiFENesin 200 MG TAB PO PRN ×2 (01:04→08:32)
[2019-06-22 05:41] LABS: #Eosinphils 0.5 thou/uL (0.0-0.7); #Lymphocytes 1.4 thou/uL (1.20-3.40); #Monocytes 0.7 thou/uL (0.11-0.59); #Neutrophils 5.4 thou/uL (1.40-6.50); %Basophils 0.5 % (0.0-1.0); %Eosinophils 6.3 % (0.0-10.0); %Lymphocytes 17.2 % (21.0-51.0); Hemoglobin 9.7 g/dL (12.0-16.0); Mean Corpuscular HGB CONC 31.3 g/dL (32.0-36.0); Mean Corpuscular Hemoglobin 26.1 pg (27.0-31.0); Mean Corpuscular Volume 83.4 fL (78.0-98.0); Platelet Count 350 thou/uL (130-400); RBC Distribution Width 16.9 % (11.5-14.5)
[2019-06-22] MEDS: Benzonatate 100 MG CAP PO PRN (05:47)
[2019-06-22 05:49] LABS: Anion Gap 12 mmol/L (10-20); BUN (Urea Nitrogen) 35 mg/dL (9.8-20.1); Calc. Creatinine Clearance 26 mL/min (70-130); Calcium 9.5 mg/dL (7.8-10.44); Carbon Dioxide 32 mmol/L (23-31); Chloride 97 mmol/L (98-107); Estimated GFR-MDRD 36; Glucose 78 mg/dL (83-110); Sodium 138 mmol/L (136-145)
[2019-06-22 05:54] LABS: Potassium 2.9 mmol/L (3.5-5.1)
[2019-06-22] MEDS ORDERED: Levothyroxine Sodium 75 MCG TAB PO SCH (06:00)
[2019-06-22] MEDS ORDERED: Potassium Chloride 20 MEQ TAB PO SCH (06:15)
[2019-06-22] MEDS ORDERED: Potassium Chloride 40 MEQ in Sodium Chloride 0.9% 250 ML 250 ML IVPB SCH (06:15)
[2019-06-22] MEDS ORDERED: Carvedilol 25 MG TAB PO SCH (08:00)
[2019-06-22] MEDS: Apixaban 2.5 MG TAB PO SCH (08:32)
[2019-06-22] MEDS ORDERED: Famotidine/PF 20 mg/2ml Vial SLOW IVP SCH (09:00)
[2019-06-22] MEDS ORDERED: Aspirin Chewable 81 MG TAB PO SCH (09:00)
[2019-06-22 11:14] LABS: Potassium 4.1 mmol/L (3.5-5.1)
[2019-06-22 11:32] VITALS: BP 93/51; TEMP 98.5
--- NOTE | 2019-06-25 11:46 | DIS ---
DATE OF ADMISSION: 06/21/2019 DATE OF DISCHARGE: 06/22/2019 DISCHARGE DIAGNOSES: 1. Pneumonia. 2. Elevated BNP. 3. History of ischemic cardiomyopathy. 4. Atrial fibrillation. 5. Diabetes mellitus. 6. Hypertension. HISTORY OF PRESENT ILLNESS: This patient is an 88-year-old female with a history of a known cardiomyopathy with an EF of 15% to 20%, who presented to the emergency department with cough. She had slight elevation in her BNP and was thought to have some congestive heart failure and was subsequently placed on observation. Chest x-ray was negative. Followup CT scan of the chest revealed small left pleural effusion, left lower lobe infiltrate consolidation consistent with pneumonia. The patient by the following day was feeling significantly better. Her oxygen levels were very good. She was very comfortable sitting up, eating and was desirous of going home. Given that the diagnosis of pneumonia had been made, her exam being generally benign and the risk of her staying in the hospital over a prolonged period, she was felt to be stable for discharge to home. PHYSICAL EXAMINATION: VITAL SIGNS: On the day of discharge, temperature was 98.5, pulse 85, respirations 16, O2 saturation 97%, BP ranged from 93/51 to 144/67. GENERAL: She was awake and alert. HEART: Regular. LUNGS: Clear. ABDOMEN: Benign. DISPOSITION: The patient is discharged to home. ACTIVITY: As tolerated. She will stay on a heart healthy low-sodium diet. DISCHARGE MEDICATIONS: She will be on; 1. Azithromycin 250 mg daily. 2. Omnicef 300 mg b.i.d. She will continue; 1. Levothyroxine. 2. Eliquis. 3. Aspirin. 4. Atorvastatin. 5. Glimepiride. 6. Coreg. 7. Entresto. 8. Lasix. at her usual home regimen dosing. FOLLOWUP: She will follow up with [facility] with Daina Toro. She will also follow up with Dr. Madhu Chan in [place] and she can return to the hospital at anytime should she have the need to do so. Job ID: [id number]
== END 2019-06-22 13:56 | disposition home or self-care (01) ==
LOC: ERS 13:31 → 2SW 17:41
PROVIDERS: ADMIT Emergency Medicine; ATTEND Emergency Medicine
DX: J18.9 Pneumonia, unspecified organism (principal); I95.9 Hypotension, unspecified; R79.89 Other specified abnormal findings of blood chemistry; I25.5 Ischemic cardiomyopathy; I48.91 Unspecified atrial fibrillation; E11.9 Type 2 diabetes mellitus without complications; I11.0 Hypertensive heart disease with heart failure; I50.9 Heart failure, unspecified; I25.10 Atherosclerotic heart disease of native coronary artery without angina pectoris; E03.9 Hypothyroidism, unspecified; Z79.01 Long term (current) use of anticoagulants; Z79.82 Long term (current) use of aspirin; Z79.84 Long term (current) use of oral hypoglycemic drugs; Z79.899 Other long term (current) drug therapy; Z95.0 Presence of cardiac pacemaker
CPT/HCPCS: 71045; 71250; 80048; 80053; 82550; 83605; 83880; 84132; 84484; 85025 ×2; 87804 ×2; 93005; 93798; 94760; 96365; 96367; 96375 ×2; 99285; G0378 ×3; 36415; 96374; J0456; J0696; J1940; J3480; J3490; J7050; S0028

== ENCOUNTER 2019-08-13 15:15 | Inpatient (IN) | payer MEDICARE ==
[2019-08-13 16:30] VITALS: BMI 25.4
[2019-08-13] MEDS ORDERED: DOBUTamine 500 mg/250 ml 250 ML IVPB SCH (18:00)
[2019-08-13] MEDS ORDERED: Acetaminophen 325 MG TAB PO PRN (18:01)
[2019-08-13 18:18] LABS: #Basophils 0.1 thou/uL (0.0-0.2); #Eosinphils 0.2 thou/uL (0.0-0.7); #Lymphocytes 1.4 thou/uL (1.20-3.40); #Monocytes 0.4 thou/uL (0.11-0.59); #Neutrophils 2.7 thou/uL (1.40-6.50); %Basophils 1.4 % (0.0-1.0); %Eosinophils 5.1 % (0.0-10.0); %Monocytes 8.9 % (0.0-10.0); %Neutrophils 55.6 % (42.0-75.0); Mean Corpuscular HGB CONC 31.6 g/dL (32.0-36.0); Mean Corpuscular Hemoglobin 26.1 pg (27.0-31.0); Mean Corpuscular Volume 82.5 fL (78.0-98.0); Mean Platelet Volume 9.7 fL (7.4-10.4); Platelet Count 230 thou/uL (130-400); RBC Distribution Width 17.4 % (11.5-14.5); Red Blood Cell (RBC) Count 3.82 mill/uL (4.20-5.40); White Blood Cell (WBC) Count 4.8 thou/uL (4.8-10.8)
[2019-08-13 18:35] LABS: ALT (SGPT) 18 U/L (8-55); AST (SGOT) 27 U/L (5-34); Albumin 4.1 g/dL (3.4-4.8); Alkaline Phosphatase 114 U/L (40-110); Anion Gap 17 mmol/L (10-20); BUN (Urea Nitrogen) 54 mg/dL (9.8-20.1); Bilirubin, Total 1.1 mg/dL (0.2-1.2); Calc. Creatinine Clearance 18 mL/min (70-130); Calcium 9.8 mg/dL (7.8-10.44); Carbon Dioxide 28 mmol/L (23-31); Chloride 96 mmol/L (98-107); Estimated GFR-MDRD 23; Globulin 3.3 g/dL (2.4-3.5); Glucose 137 mg/dL (83-110); Potassium 3.6 mmol/L (3.5-5.1); Protein, Total 7.4 g/dL (6.0-8.3); Sodium 137 mmol/L (136-145)
[2019-08-13] MEDS: Bumetanide 1 MG TAB PO SCH (20:14)
[2019-08-13] MEDS: traMADol HCl 50 MG TAB PO SCH (20:14)
[2019-08-13] MEDS: Atorvastatin Calcium 40 MG TAB PO SCH (20:15)
[2019-08-13] MEDS: Apixaban 2.5 MG TAB PO SCH (20:15)
--- NOTE | 2019-08-14 00:10 | HP ---
CHIEF COMPLAINT: Decompensated heart failure. HISTORY OF PRESENT ILLNESS: This patient is an 88-year-old female with a history of systolic congestive heart failure. Her most recent echocardiogram showed an ejection fraction of 15% to 20% with moderate to severe MR, moderate AR, and moderate TR. The patient was being managed as an outpatient with Cardiology Clinic and the Heart Failure Clinic. However, with continued attempts to improve her heart failure, which was manifest primarily as dyspnea on exertion, the patient was not responding well and most recent labs indicated that she was having some worsening renal function. Therefore, it was felt the patient necessitated inpatient hospitalization to be started on a dobutamine drip. The patient reports that presently she is generally comfortable as long as she is resting or lying down. She denies any specific chest pain. REVIEW OF SYSTEMS: She reports she has had normal bowel and bladder habits, normal appetite, generally normal sleep. All other systems reviewed, all pertinent positives and negatives noted in the history of present illness. PAST MEDICAL HISTORY: Notable for severe multi-vessel occlusive coronary disease not amenable to intervention, ischemic cardiomyopathy as stated above, hypothyroidism, diabetes mellitus, atrial fibrillation, diastolic heart failure, hypertension. PAST SURGICAL HISTORY: Appendectomy, hysterectomy, spinal surgeries, defibrillator placement, cataract ectomy. FAMILY HISTORY: Mother had heart problems. Brother also had some type of cardiac surgical intervention. She has two sons, both of whom have "heart aneurysms." SOCIAL HISTORY: The patient is a nonsmoker, nondrinker, and nondrug user. She is . She currently still lives with her . She is full code and her or any other immediate family member would be her surrogate decision maker should that become necessary. ALLERGIES: NONE. CURRENT MEDICATIONS: 1. Tramadol 50 mg at bedtime. 2. Tylenol 325 at bedtime p.r.n. 3. Centrum Silver 1 p.o. daily. 4. Potassium 20 mEq t.i.d. 5. Entresto one p.o. b.i.d. 6. Levothyroxine 75 mcg daily. 7. Amaryl 1 p.o. daily. 8. Coreg 12.5 mg b.i.d. 9. Lipitor 40 mg at bedtime. 10. Enteric-coated aspirin 1 p.o. daily. 11. Eliquis 2.5 mg b.i.d. 12. Bumex 1 mg b.i.d. PHYSICAL EXAMINATION: VITAL SIGNS: Temperature 97.5, pulse 81, respirations 18, O2 saturation 99% on room air, BP is 101/58. GENERAL APPEARANCE: Age-appropriate female, in no distress. She is awake, alert, oriented, pleasant, and cooperative. She has a little venous distention on her face, but not significant JVD at the neck. HEART: Irregular with a 2/6 murmur heard throughout the precordium, loudest at the left sternal border. LUNGS: Clear to auscultation bilaterally with no wheezes or rales. ABDOMEN: Soft, nontender, and nondistended. Positive bowel sounds. No masses. No organomegaly. EXTREMITIES: No cyanosis, clubbing, or edema. IMPRESSION AND PLAN: 1. Acute on chronic systolic heart failure, failing outpatient therapy and resulting in some cardiorenal syndrome. The patient is admitted to the hospital. We will start on a low-dose dobutamine drip keeping the dose low to avoid significant tachycardia from the atrial fibrillation. We will also hold her beta vanessa while on the dobutamine drip. We will consult Cardiology and check some baseline labs. We will continue with Entresto and Bumex. 2. Cardiorenal syndrome. The patient has chronic kidney disease, stage 3 to 4 and her most recent labs indicated a worsening GFR at 19, where her most recent values were in the range of 29 to 36. Again, we will address the heart failure with dobutamine as she would see some improvement with her renal function. 3. Chronic kidney disease, stage 3 to 4 as above. 4. Hypothyroidism. Continue levothyroxine 75 mcg daily. 5. Diabetes mellitus. Continue with the Amaryl. We will get a diabetic diet and follow with Accu-Cheks. 6. Atrial fibrillation, chronic. Has good rate control for now. We will need to monitor with the dobutamine and continue with the Eliquis. Job ID: [id number]
[2019-08-14] MEDS: Levothyroxine Sodium 75 MCG TAB PO SCH (05:30)
[2019-08-14 05:47] LABS: Anion Gap 15 mmol/L (10-20); BUN (Urea Nitrogen) 52 mg/dL (9.8-20.1); Calc. Creatinine Clearance 21 mL/min (70-130); Calcium 9.4 mg/dL (7.8-10.44); Carbon Dioxide 26 mmol/L (23-31); Chloride 100 mmol/L (98-107); Estimated GFR-MDRD 28; Glucose 98 mg/dL (83-110); Potassium 3.2 mmol/L (3.5-5.1); Sodium 138 mmol/L (136-145)
[2019-08-14] MEDS: Apixaban 2.5 MG TAB PO SCH ×2 (08:11→19:55)
[2019-08-14] MEDS: Aspirin 81 mg Enteric Coated Tablet PO SCH (08:11)
[2019-08-14] MEDS: Bumetanide 1 MG TAB PO SCH ×2 (08:11→19:56)
[2019-08-14] MEDS: Potassium Chloride 20 MEQ TAB PO SCH ×3 (08:11→17:26)
[2019-08-14] MEDS: Glimepiride 1 MG TAB PO SCH (09:23)
--- NOTE | 2019-08-14 09:34 | PDOC.HOSPP ---
- Subjective Encounter Date: 08/14/19 Subjective: DOing better. Breathing better. Diuresing well. - Objective Vital Signs & Weight: Vital Signs (12 hours) Temp Pulse Resp BP Pulse Ox 08/14/19 07:21 98.0 F 85 16 104/65 98 08/14/19 04:00 97.8 F 104 H 18 112/59 L 97 08/13/19 23:02 91 29 H 108/72 98 Weight Weight 129 lb I&O: 08/13/19 08/14/19 08/15/19 06:59 06:59 06:59 Intake Total 170 Output Total 1700 Balance -1530 Result Diagrams: 08/13/19 18:04 08/14/19 04:18 Additional Labs: Accuchecks 08/14/19 08/13/19 08/13/19 05:38 20:46 16:49 POC Glucose 108 191 H 160 H Hospitalist ROS - Medication Medications: Active Medications Generic Name Dose Route Start Last Admin Trade Name Freq PRN Reason Stop Dose Admin Apixaban 2.5 mg 08/13/19 21:00 08/14/19 08:11 Eliquis PO 2.5 mg BID JOSE Administration Aspirin 81 mg 08/14/19 09:00 08/14/19 08:11 Ecotrin PO 81 mg DAILY JOSE Administration Atorvastatin Calcium 40 mg 08/13/19 21:00 08/13/19 20:15 Lipitor PO 40 mg HS JOSE Administration Bumetanide 1 mg 08/13/19 21:00 08/14/19 08:11 Bumex PO 1 mg BID JOSE Administration Glimepiride 1 mg 08/14/19 09:00 08/14/19 09:23 Amaryl PO 1 mg DAILY JOSE Administration Dobutamine HCl/Dextrose 250 mls @ 4.423 mls/hr 08/13/19 18:00 08/13/19 20:12 Dobutamine 500 Mg/250 Ml IVPB 250 mls INF JOSE Administration Protocol 2.5 MCG/KG/MIN Levothyroxine Sodium 75 mcg 08/14/19 06:00 08/14/19 05:30 Synthroid PO 75 mcg 0600 JOSE Administration Potassium Chloride 20 meq 08/14/19 08:00 08/14/19 08:11 K-Dur PO 20 meq TID-WM JOSE Administration Sacubitril/Valsartan 1 tab 08/13/19 21:00 08/14/19 08:11 Entresto 24 Mg-26 Mg Tablet PO 1 tab BID JOSE Administration Tramadol HCl 50 mg 08/13/19 21:00 08/13/19 20:14 Ultram PO 50 mg HS JOSE Administration - Exam General Appearance: NAD, awake alert Heart: irregular, II/IV Respiratory: CTAB, no wheezes, no rales, no ronchi, normal chest expansion, no tachypnea, normal percussion Gastrointestinal: soft, non-tender, non-distended, normal bowel sounds, no palpable masses, no hepatomegaly, no splenomegaly, no bruit Extremities: no cyanosis, no clubbing, no edema Skin: normal turgor Neurological: no focal deficits Musculoskeletal: normal tone, normal strength, no muscle wasting Psychiatric: normal affect, normal behavior, A&O x 3 Hosp A/P (1) Acute on chronic systolic (congestive) heart failure Code(s): I50.23 - ACUTE ON CHRONIC SYSTOLIC (CONGESTIVE) HEART FAILURE Status : Acute (2) History of ischemic cardiomyopathy Code(s): Z86.79 - PERSONAL HISTORY OF OTHER DISEASES OF THE CIRCULATORY SYSTEM Status: Chronic (3) MARÍA (acute kidney injury) Code(s): N17.9 - ACUTE KIDNEY FAILURE, UNSPECIFIED Status: Acute (4) Hypokalemia Code(s): E87.6 - HYPOKALEMIA Status: Acute (5) Mitral regurgitation Status: Acute (6) Afib Code(s): I48.91 - UNSPECIFIED ATRIAL FIBRILLATION Status: Chronic (7) DM type 2 (diabetes mellitus, type 2) Status: Chronic (8) HTN (hypertension) Code(s): I10 - ESSENTIAL (PRIMARY) HYPERTENSION Status: Chronic - Plan Doing well with the dobutamine gtt. Discussed with Dr. Fuller. Will continue for another day. Replete potassium with additional dosing. Recheck tomorrow. If doing well DC tomorrow (possibly ). Continue fluid restriction. Continue achs glucose checks, carb consistent diet.
[2019-08-14] MEDS ORDERED: Potassium Chloride 20 MEQ TAB PO SCH (09:45)
--- NOTE | 2019-08-14 10:50 | CON ---
DATE OF CONSULTATION: REASON FOR CONSULTATION: Acute on chronic systolic heart failure. HISTORY OF PRESENT ILLNESS: Ms. Jackson is an 88-year-old woman, who has been seen and evaluated in the Heart failure Clinic for heart failure type symptoms. She has a history of ischemic cardiomyopathy. She previously had a non-Q-wave CA and opted to not proceed with angiography. She has been treated medically. She has been treated with Lasix as an outpatient by Daina in the Heart Failure Clinic, but continues to have swelling, shortness of breath, and PND. PAST MEDICAL HISTORY: Ischemic cardiomyopathy, paroxysmal atrial fibrillation, hypertension, diabetes mellitus, hyperlipidemia, , cataract surgery, lumbar surgery, appendectomy, and hysterectomy. HOME MEDICATIONS: Include, 1. Metolazone. 2. Tramadol. 3. Pantoprazole. 4. Potassium. 5. Isosorbide. 6. Aspirin. 7. Lasix. 8. Atorvastatin. 9. Eliquis. 10. Coreg. 11. Metformin. 12. Losartan. FAMILY HISTORY: Negative for CAD. SOCIAL HISTORY: No current tobacco or alcohol use. REVIEW OF SYSTEMS: A 10-point review of systems is reviewed as above, otherwise negative. PHYSICAL EXAMINATION: GENERAL: Patient is a pleasant woman, who is in no acute distress. The patient appears their stated age. VITAL SIGNS: Blood pressure 104/65, pulse 85, temperature 98. NEUROLOGIC: The patient is alert and oriented x3 with no focal neurologic deficits. HEENT: Sclerae without icterus. Mouth has moist mucous membranes with normal pallor. NECK: No JVD. Carotid upstroke brisk. No bruits bilaterally. LUNGS: Crackles noted bilateral. BACK: No scoliosis or kyphosis. CARDIAC: Regular rate and rhythm with normal S1 and S2. No S3 or S4 noted. No significant rubs, murmurs, thrills, or gallops noted throughout the precordium. PMI is not displaced. There is no parasternal heave. ABDOMEN: Soft, nontender, nondistended. No peritoneal signs present. No hepatosplenomegaly. No abnormal striae. EXTREMITIES: 1+ pitting edema. SKIN: No gross abnormalities. PERTINENT LABORATORY DATA: Hemoglobin 10, hematocrit 31.5. Creatinine 1.74, down from 2.09. Potassium 3.2. IMPRESSION: 1. Ischemic cardiomyopathy. 2. Acute on chronic systolic heart failure. 3. Paroxysmal atrial fibrillation. RECOMMENDATIONS: 1. Decreases Xarelto to 50 mg q.a.m.; the patient previously was on Eliquis 2.5 mg b.i.d. and I am unsure when the switch to Xarelto was made. 2. Continue Lasix and low-dose Dobutrex. 3. Do not titrate up Dobutrex given potential increase in heart rate given underlying atrial fibrillation. 4. The patient does feel much better after IV Lasix and Dobutrex. We will continue to diuresis. Plan on continuing and potential discharge in the next 1 to 2 days. Job ID: [id number]
[2019-08-14] MEDS ORDERED: Dextrose 5% in Water 1,000 ML IV PRN (11:59)
[2019-08-14] MEDS ORDERED: Dextrose 50% Abboject 50 ML SYRINGE SLOW IVP PRN (11:59)
[2019-08-14] MEDS: HumaLOG 300 UNITS/3 ML VIAL SC PRN (12:27)
[2019-08-14] MEDS: Atorvastatin Calcium 40 MG TAB PO SCH (19:55)
[2019-08-14] MEDS: traMADol HCl 50 MG TAB PO SCH (19:55)
[2019-08-15 04:52] LABS: Anion Gap 13 mmol/L (10-20); BUN (Urea Nitrogen) 43 mg/dL (9.8-20.1); Calc. Creatinine Clearance 22 mL/min (70-130); Calcium 9.5 mg/dL (7.8-10.44); Carbon Dioxide 30 mmol/L (23-31); Chloride 104 mmol/L (98-107); Estimated GFR-MDRD 30; Glucose 90 mg/dL (83-110); Potassium 3.7 mmol/L (3.5-5.1); Sodium 143 mmol/L (136-145)
[2019-08-15] MEDS: Levothyroxine Sodium 75 MCG TAB PO SCH (05:47)
[2019-08-15] MEDS: Potassium Chloride 20 MEQ TAB PO SCH ×3 (08:34→18:09)
[2019-08-15] MEDS: Bumetanide 1 MG TAB PO SCH ×2 (08:34→21:12)
[2019-08-15] MEDS: Aspirin 81 mg Enteric Coated Tablet PO SCH (08:34)
[2019-08-15] MEDS: Glimepiride 1 MG TAB PO SCH (08:35)
[2019-08-15] MEDS: Apixaban 2.5 MG TAB PO SCH ×2 (08:35→21:12)
--- NOTE | 2019-08-15 09:57 | PDOC.CPN ---
- Subjective Date: 08/15/19 Time: 09:00 Interval history: Overall doing well. Renal function improved. No complaints today. No up walking. - Review of Systems General: denies: fever/chills, weight/appetite/sleep changes, night sweats, fatigue Respiratory: reports: shortness of breath Cardiovascular: denies: chest pain, palpitation, edema, paroxysmal nocturnal dyspnea, orthopnea Gastrointestinal: denies: nausea, vomiting, diarrhea, constipation, abd pain, GI bleeding Musculoskeletal: denies: pain, tenderness, stiffness, swelling, arthritis/ arthralgias Neurological: denies: numbness, syncope, seizure, weakness - Objective Allergies/Adverse Reactions: Allergies Allergy/AdvReac Type Severity Reaction Status Date / Time No Known Allergies Allergy Verified 08/13/19 17:04 Visit Medications: Current Medications Acetaminophen (Tylenol) 650 mg PO Q4H PRN PRN Reason: Headache/Fever/Mild Pain (1-3) Acetaminophen (Tylenol) 325 mg PO HSPRN PRN PRN Reason: Pain Apixaban (Eliquis) 2.5 mg PO BID [facility] Last Admin: 08/15/19 08:35 Dose: 2.5 mg Aspirin (Ecotrin) 81 mg PO DAILY [facility] Last Admin: 08/15/19 08:34 Dose: 81 mg Atorvastatin Calcium (Lipitor) 40 mg PO HS [facility] Last Admin: 08/14/19 19:55 Dose: 40 mg Bumetanide (Bumex) 1 mg PO BID [facility] Last Admin: 08/15/19 08:34 Dose: 1 mg Dextrose/Water (Dextrose 50%) 25 gm SLOW IVP PRN PRN PRN Reason: Hypoglycemia Glimepiride (Amaryl) 1 mg PO DAILY [facility] Last Admin: 08/15/19 08:35 Dose: 1 mg Glucagon (Glucagon) 1 mg IM PRN PRN PRN Reason: Hypoglycemia Dobutamine HCl/Dextrose (Dobutamine 500 Mg/250 Ml) 250 mls @ 4.423 mls/hr IVPB INF [facility]; Protocol Last Admin: 08/13/19 20:12 Dose: 250 mls Dextrose/Water (D5w) 1,000 mls @ 0 mls/hr IV .Q0M PRN PRN Reason: Hypoglycemia Insulin Human Lispro (Humalog) 0 units SC .MILD SLIDING SCALE PRN PRN Reason: Mild Correctional Scale Last Admin: 08/14/19 12:27 Dose: 3 unit Levothyroxine Sodium (Synthroid) 75 mcg PO 0600 [facility] Last Admin: 08/15/19 05:47 Dose: 75 mcg Potassium Chloride (K-Dur) 20 meq PO TID-WM [facility] Last Admin: 08/15/19 08:34 Dose: 20 meq Sacubitril/Valsartan (Entresto 24 Mg-26 Mg Tablet) 1 tab PO BID [facility] Last Admin: 08/15/19 08:35 Dose: 1 tab Tramadol HCl (Ultram) 50 mg PO HS [facility] Last Admin: 08/14/19 19:55 Dose: 50 mg Vital Signs & Weight: Vital Signs Temp Pulse Resp BP Pulse Ox 08/15/19 07:29 97.5 F L 100 20 110/62 99 08/15/19 03:21 97.9 F 93 16 102/56 L 93 L 08/14/19 23:17 101 H 102/57 L Weight 127 lb 11.2 oz - Physical Exam General: alert & oriented x3, appears well HEENT: mucus membranes moist Neck: supple neck Cardiac: other (IRR IRR) Lungs: normal breath sounds Neuro: grossly intact Abdomen: soft, non-tender Extremities: 1+ LE edema Skin: clear Musculoskeletal: no pain - Labs Result Diagrams: 08/13/19 18:04 08/15/19 04:13 - Assessment/Plan Assessment/Plan: 1. Acute on chronic systolic CHF 2. Chronic AF 3. NSVT 4. CAD 5. ICMO 6. Hx SC 7. SANTOS/CKD - improving 8. Hx hyperkalemia on aldactone 9. s/p single-lead ICD Discussed course at length with patient. She has been stable in recent years until the last 4-6 months. She's had multiple admissions and failed outpatient IV lasix and zaroxolyn as outpatient secondary to SANTOS. Hx old SC and later NSTEMI. Fairly frequent NSVT on previous Carelinks. May need repeat angio with decompensation. Also consider RFA-AVJ with upgrade to BiV device. If she chooses conservative therapy we will have to monitor her closely for increased volume overload as outpatient. Event then discussed quality of life and expectancy on chronic IV inotropes. Plan to stop dobutamine tomorrow. Will discuss further with Blake PATEL and Maricarmen.
[2019-08-15] MEDS: HumaLOG 300 UNITS/3 ML VIAL SC PRN ×2 (12:04→18:10)
--- NOTE | 2019-08-15 14:29 | PDOC.HOSPP ---
- Subjective Encounter Date: 08/15/19 Encounter Time: 07:00 Subjective: Pt seen for followup re: CHF exacerbation. Feels better today, no complaints. - Objective Vital Signs & Weight: Vital Signs (12 hours) Temp Pulse Resp BP Pulse Ox 08/15/19 11:57 97.8 F 110 H 18 103/76 99 08/15/19 08:35 99 08/15/19 07:29 97.5 F L 100 20 110/62 99 08/15/19 03:21 97.9 F 93 16 102/56 L 93 L Weight Weight 127 lb 11.2 oz I&O: 08/14/19 08/15/19 08/16/19 06:59 06:59 06:59 Intake Total 170 900 Output Total 1700 2900 Balance -1529 Result Diagrams: 08/13/19 18:04 08/15/19 04:13 Additional Labs: Accuchecks 08/15/19 08/15/19 08/14/19 12:01 05:49 20:20 POC Glucose 204 H 109 194 H 08/14/19 16:38 POC Glucose 149 H Labs and MARs reviewed by me EKG Reviewed by me: Yes (Tele: NSR) Hospitalist ROS - Review of Systems Cardiovascular: denies: chest pain, palpitations, orthopnea, paroxysmal noc. dyspnea, edema, light headedness Gastrointestinal: denies: nausea, vomiting, abdominal pain, diarrhea, constipation, melena, hematochezia - Medication Medications: Active Medications Generic Name Dose Route Start Last Admin Trade Name Freq PRN Reason Stop Dose Admin Apixaban 2.5 mg 08/13/19 21:00 08/15/19 08:35 Eliquis PO 2.5 mg BID JOSE Administration Aspirin 81 mg 08/14/19 09:00 08/15/19 08:34 Ecotrin PO 81 mg DAILY JOSE Administration Atorvastatin Calcium 40 mg 08/13/19 21:00 08/14/19 19:55 Lipitor PO 40 mg HS JOSE Administration Bumetanide 1 mg 08/13/19 21:00 08/15/19 08:34 Bumex PO 1 mg BID JOSE Administration Glimepiride 1 mg 08/14/19 09:00 08/15/19 08:35 Amaryl PO 1 mg DAILY JOSE Administration Dobutamine HCl/Dextrose 250 mls @ 4.423 mls/hr 08/13/19 18:00 08/13/19 20:12 Dobutamine 500 Mg/250 Ml IVPB 250 mls INF JOSE Administration Protocol 2.5 MCG/KG/MIN Insulin Human Lispro 0 units 08/14/19 11:59 08/15/19 12:04 Humalog SC 3 unit .MILD SLIDING SCALE PRN Administration Mild Correctional Scale Levothyroxine Sodium 75 mcg 08/14/19 06:00 08/15/19 05:47 Synthroid PO 75 mcg 0600 JOSE Administration Potassium Chloride 20 meq 08/14/19 08:00 08/15/19 12:05 K-Dur PO 20 meq TID-WM JOSE Administration Sacubitril/Valsartan 1 tab 08/13/19 21:00 08/15/19 08:35 Entresto 24 Mg-26 Mg Tablet PO 1 tab BID JOSE Administration Tramadol HCl 50 mg 08/13/19 21:00 08/14/19 19:55 Ultram PO 50 mg HS JOSE Administration - Exam General Appearance: awake alert Eye: anicteric sclera ENT: moist mucosa Neck: supple Heart: RRR Respiratory: rales Gastrointestinal: soft, non-tender Psychiatric: normal affect, normal behavior Hosp A/P - Plan - Assessment (1) Acute on chronic systolic (congestive) heart failure Code(s): I50.23 - ACUTE ON CHRONIC SYSTOLIC (CONGESTIVE) HEART FAILURE Status : Acute (2) History of ischemic cardiomyopathy Code(s): Z86.79 - PERSONAL HISTORY OF OTHER DISEASES OF THE CIRCULATORY SYSTEM Status: Chronic (3) Mitral regurgitation Status: Chronic (4) Afib Code(s): I48.91 - UNSPECIFIED ATRIAL FIBRILLATION Status: Chronic (5) DM type 2 (diabetes mellitus, type 2) Status: Chronic (6) HTN (hypertension) Code(s): I10 - ESSENTIAL (PRIMARY) HYPERTENSION Status: Chronic (7) Acute on chronic stage 3 renal failure Status: Resolved (8) Hypokalemia Code(s): E87.6 - HYPOKALEMIA Status: Resolved - Plan Doing well with the dobutamine drip. Continue fluid restriction. Continue accuchecks, carb consistent diet. HTN controlled. Ambulate pt. Likely home tomorrow.
[2019-08-15] MEDS: Digoxin 0.5 MG/2 ML AMP SLOW IVP SCH ×2 (21:03→22:55)
[2019-08-15] MEDS: traMADol HCl 50 MG TAB PO SCH (21:11)
[2019-08-15] MEDS: Atorvastatin Calcium 40 MG TAB PO SCH (21:12)
[2019-08-15] MEDS: Acetaminophen 325 MG TAB PO PRN (22:31)
[2019-08-15] MEDS ORDERED: Digoxin 0.5 MG/2 ML AMP SLOW IVP PRN (23:03)
[2019-08-16] MEDS: Acetaminophen 325 MG TAB PO PRN (02:24)
[2019-08-16 04:36] LABS: Hemoglobin 8.2 g/dL (12.0-16.0); Platelet Count 211 thou/uL (130-400)
[2019-08-16] MEDS: Levothyroxine Sodium 75 MCG TAB PO SCH (05:40)
[2019-08-16] MEDS: Potassium Chloride 20 MEQ TAB PO SCH ×2 (10:26→13:11)
[2019-08-16] MEDS: Apixaban 2.5 MG TAB PO SCH (10:26)
[2019-08-16] MEDS: Aspirin 81 mg Enteric Coated Tablet PO SCH (10:26)
[2019-08-16] MEDS: Glimepiride 1 MG TAB PO SCH (10:27)
[2019-08-16] MEDS: Bumetanide 1 MG TAB PO SCH (10:27)
[2019-08-16 11:44] VITALS: BP 109/54; TEMP 97.7
--- NOTE | 2019-08-16 15:08 | PRG ---
DATE OF SERVICE: 08/16/2019 SUBJECTIVE: Ms. Jackson is doing much better. She would like to go home. She has had significant diuresis. OBJECTIVE: VITAL SIGNS: Blood pressure 109/54, pulse 94, temperature 97.7. LUNGS: Much improvement in crackles noted bilaterally. HEART: Regular rate and rhythm. ABDOMEN: Soft, nontender, nondistended. EXTREMITIES: No edema. PERTINENT LABORATORY DATA: Creatinine 1.58, which is down from 1.64. IMPRESSION: 1. Acute on chronic systolic failure. 2. Coronary artery disease. 3. Ischemic cardiomyopathy. RECOMMENDATIONS: The patient would like to go home today. It would be okay from my standpoint. I counseled her on decreased fluids and salt intake at home. May consider AV mila ablation with biventricular pacemaker to help with LVEF. This can be discussed as an outpatient. Recommend continuing aspirin, Eliquis. Restart low-dose Coreg 3.125 one p.o. b.i.d. and continue Entresto. Job ID: [id number]
--- NOTE | 2019-08-16 21:19 | DIS ---
DATE OF ADMISSION: 08/13/2019 DATE OF DISCHARGE: 08/16/2019 PRIMARY CARE PROVIDER: Dr. Madhu Chan. DISCHARGE DIAGNOSES: 1. Acute on chronic systolic congestive heart failure, NYHA class III. 2. Cardiorenal syndrome. 3. Acute on chronic stage 3 renal failure. CONDITION OF PATIENT ON THE DAY OF DISCHARGE: Stable. I assessed Ms. Jackson on the day of discharge. She denies any chest pain or shortness of breath. Vital signs are stable. S1 and S2 are heard, irregular. Lungs are clear to auscultation bilaterally. DISCHARGE MEDICATIONS: Her Coreg dose was decreased to 3.125 mg 2 times a day. Otherwise, no change was made to her pre-admission medications as dictated by Dr. Ramos in his history and physical note dated 08/13/2019. CONSULTATIONS DURING THIS HOSPITALIZATION: Cardiology, Dr. Fuller. HOSPITAL COURSE: Ms. Jackson is a pleasant 88-year-old lady, who was admitted to [facility] on 08/13/2019, for acute on chronic systolic congestive heart failure and acute on chronic renal failure. Please refer to Dr. Ramos's history and physical note dated 08/13/2019, for further details. She was treated with low-dose dobutamine drip with improvement in her renal function. She also diuresed well. She is being discharged home in a stable condition. Her blood pressures were borderline low during this hospitalization; therefore, her Coreg dose was decreased. On the day of discharge, she has a creatinine of 1.64 and hemoglobin of 8.2. Many thanks for allowing me to participate in your patient's care. Please feel free to contact me with any questions or concerns. DIET: Heart healthy, low-sodium and renal. ACTIVITY: As tolerated. DISCHARGE DESTINATION: Home. TIME SPENT: Total amount of time spent coordinating this discharge: 32 minutes. Job ID: [id number]
== END 2019-08-16 14:45 | disposition home health service (06) | DRG 291 ==
LOC: 2NO 15:18
PROVIDERS: ADMIT Internal Medicine; ATTEND Internal Medicine
DX: I13.0 Hypertensive heart and chronic kidney disease with heart failure and stage 1 through stage 4 chronic kidney disease, or unspecified chronic kidney disease (principal); I50.23 Acute on chronic systolic (congestive) heart failure; I48.20 Chronic atrial fibrillation, unspecified; N17.9 Acute kidney failure, unspecified; N18.3 Chronic kidney disease, stage 3 (moderate); I25.10 Atherosclerotic heart disease of native coronary artery without angina pectoris; I25.5 Ischemic cardiomyopathy; E03.9 Hypothyroidism, unspecified; I48.0 Paroxysmal atrial fibrillation; E11.22 Type 2 diabetes mellitus with diabetic chronic kidney disease; Z90.49 Acquired absence of other specified parts of digestive tract; Z90.710 Acquired absence of both cervix and uterus; Z95.810 Presence of automatic (implantable) cardiac defibrillator; Z79.890 Hormone replacement therapy; Z79.01 Long term (current) use of anticoagulants; Z79.899 Other long term (current) drug therapy; I25.2 Old myocardial infarction; I08.3 Combined rheumatic disorders of mitral, aortic and tricuspid valves; E78.5 Hyperlipidemia, unspecified; E87.6 Hypokalemia; Z79.82 Long term (current) use of aspirin; Z79.84 Long term (current) use of oral hypoglycemic drugs
CPT/HCPCS: 36415; 36416; 80048; 80053; 82565; 83880; 85014; 85018; 85025; 85049; J1160; J1250

== ENCOUNTER 2019-09-19 16:18 | Inpatient (IN) | payer MEDICARE ==
[2019-09-19 16:58] LABS: #Eosinphils 0.1 thou/uL (0.0-0.7); #Lymphocytes 1.3 thou/uL (1.20-3.40); #Monocytes 0.4 thou/uL (0.11-0.59); %Basophils 0.8 % (0.0-1.0); %Eosinophils 2.9 % (0.0-10.0); %Monocytes 7.9 % (0.0-10.0); %Neutrophils 61.5 % (42.0-75.0); Hemoglobin 10.7 g/dL (12.0-16.0); Mean Corpuscular HGB CONC 30.8 g/dL (32.0-36.0); Mean Corpuscular Hemoglobin 25.8 pg (27.0-31.0); Mean Corpuscular Volume 83.7 fL (78.0-98.0); Mean Platelet Volume 9.5 fL (7.4-10.4); Platelet Count 266 thou/uL (130-400); RBC Distribution Width 18.5 % (11.5-14.5); Red Blood Cell (RBC) Count 4.15 mill/uL (4.20-5.40); White Blood Cell (WBC) Count 4.8 thou/uL (4.8-10.8)
[2019-09-19 17:20] LABS: ALT (SGPT) 13 U/L (8-55); AST (SGOT) 20 U/L (5-34); Albumin 4.3 g/dL (3.4-4.8); Alkaline Phosphatase 111 U/L (40-110); Anion Gap 15 mmol/L (10-20); BUN (Urea Nitrogen) 36 mg/dL (9.8-20.1); Bilirubin, Total 1.2 mg/dL (0.2-1.2); Calc. Creatinine Clearance 20 mL/min (70-130); Calcium 10.1 mg/dL (7.8-10.44); Carbon Dioxide 26 mmol/L (23-31); Chloride 102 mmol/L (98-107); Estimated GFR-MDRD 24; Globulin 3.4 g/dL (2.4-3.5); Glucose 131 mg/dL (83-110); Magnesium 2.5 mg/dL (1.6-2.6); Potassium 4.6 mmol/L (3.5-5.1); Protein, Total 7.7 g/dL (6.0-8.3); Sodium 138 mmol/L (136-145)
--- NOTE | 2019-09-19 17:25 | RAD ---
TWO VIEW CHEST: 09/19/19 INDICATIONS: Shortness of breath. COMPARISON: 06/21/19. FINDINGS/IMPRESSION: Bilateral pleural effusions have occurred since prior exam, larger on the right. Cardiomegaly and mil d vascular engorgement. AICD lead is unchanged. No infiltrate. There is bibasilar atelectasis. POS: [facility]
[2019-09-19 17:43] LABS: CKMB 2.4 ng/mL (0-6.6)
[2019-09-19] MEDS ORDERED: Carvedilol 6.25 MG TAB PO SCH (17:45)
[2019-09-19] MEDS ORDERED: Ondansetron PF 4 MG/2 ML Vial IVP PRN (19:00)
--- NOTE | 2019-09-19 19:58 | PDOC.HHP ---
Hospitalist HPI - History of Present Illness shortness of breath History of Present Illness: CC: shortness of breath This is an 88 year old female with past medical history of CAD, diabetes, hypothyroidism, hyperlipidemia, CHF who presented to heart failure with clinic with increasing shortness of breath. The patient was apparently on lasix 80 mg daily and continued to have increasing dyspnea on exertion and leg swelling over the past few months. She denies orthopnea, PND, chest pain, palpitations, dizziness or lightheadedness. She denies salt intake or eating excessive fried food. She went to the heart failure clinic and was sent to the ER for direct admit for milrinone drip. She denies fevers or chills. The patient had cardiac cath in 10/2017 which showed 100% occlusion of RCA, 90% LAD and 90-95% left circumflex. At the time patient refused surgery but now she was interested. ED Course: Vitals showed BP 120/73, oxygen saturation of 99% on room air. Rest of vitals were normal. Labs showed creatinine of 1.94. Chest X ray shows pulmonary congestion. The patient was given 6.25 of coreg, started on milrinone drip and admitted to IMCU. . Hospitalist ROS - Review of Systems Constitutional: denies: fever, chills Eyes: denies: pain, vision change ENT: denies: ear discharge Respiratory: reports: shortness of breath. denies: cough, dry Cardiovascular: reports: edema. denies: chest pain, palpitations, orthopnea Gastrointestinal: denies: nausea, vomiting, abdominal pain, other Genitourinary: denies: dysuria, frequency Musculoskeletal: denies: neck pain, shoulder pain Skin: denies: lesions Neurological: denies: weakness, numbness Hospitalist History - Past Medical History Cardiac: reports: AFIB, CAD, CHF Endocrine: reports: Diabetes, Hypothyroidism - Past Surgical History Past Surgical History: reports: Appendectomy, Hysterectomy, Other (spinal surgery defibrillator placement) - Family History Other Family History: Two sons had aneurysms and one had a bypass Mother of a heart attack - Social History Smoking Status: Never smoker Alcohol: reports: None Drugs: reports: none - Exam General Appearance: NAD, awake alert Eye: PERRL, anicteric sclera ENT: normocephalic atraumatic, no oropharyngeal lesions Neck: supple, JVD Heart: RRR, no murmur, no gallops, no rubs Respiratory - other findings: mildly diminished breath sounds at the bases, mild crackles on left Gastrointestinal: soft, non-tender, non-distended, normal bowel sounds Extremities: no cyanosis, no clubbing, no edema Skin: normal turgor, no lesions, no rashes Neurological: cranial nerve grossly intact, normal sensation to touch, no focal deficits, no new deficit Musculoskeletal: normal tone, normal strength, no muscle wasting Psychiatric: normal affect, normal behavior, A&O x 3, oriented to person Hospitalist Results - Labs Result Diagrams: 09/19/19 16:43 09/19/19 16:43 Lab results: WBC 4.8 thou/uL (4.8-10.8) 09/19/19 16:43 Hgb 10.7 g/dL (12.0-16.0) L 09/19/19 16:43 Hct 34.7 % (36.0-47.0) L 09/19/19 16:43 MCV 83.7 fL (78.0-98.0) 09/19/19 16:43 Plt Count 266 thou/uL (130-400) 09/19/19 16:43 Neutrophils % 61.5 % (42.0-75.0) 09/19/19 16:43 Sodium 138 mmol/L (136-145) 09/19/19 16:43 Potassium 4.6 mmol/L (3.5-5.1) 09/19/19 16:43 Chloride 102 mmol/L (98-107) 09/19/19 16:43 Carbon Dioxide 26 mmol/L (23-31) 09/19/19 16:43 BUN 36 mg/dL (9.8-20.1) H 09/19/19 16:43 Creatinine 1.94 mg/dL (0.6-1.1) H 09/19/19 16:43 Glucose 131 mg/dL (83-110) H 09/19/19 16:43 Calcium 10.1 mg/dL (7.8-10.44) 09/19/19 16:43 Total Bilirubin 1.2 mg/dL (0.2-1.2) 09/19/19 16:43 AST 20 U/L (5-34) 09/19/19 16:43 ALT 13 U/L (8-55) 09/19/19 16:43 Alkaline Phosphatase 111 U/L (40-110) H 09/19/19 16:43 CK-MB (CK-2) 2.4 ng/mL (0-6.6) 09/19/19 16:43 Troponin I 0.031 ng/mL (< 0.028) H 09/19/19 16:43 B-Natriuretic Peptide 4460.2 pg/mL (0-100) H 09/19/19 16:43 Serum Total Protein 7.7 g/dL (6.0-8.3) 09/19/19 16:43 Albumin 4.3 g/dL (3.4-4.8) 09/19/19 16:43 - EKG Interpretation EKG: EKG: atrial fibrillation with low voltage Hospitalist H&P A/P - Plan Plan: Chest X ray: right sided pleural effusion noted, cardiomegaly, small left sided effusion This is an 88 year old female with past medical history of CHF, CAD, hypothyroidism, diabetes who presented to the ER with increasing shortness of breath, found to be in [facility] and admitted for CHF exacerbation #Acute systolic CHF exacerbation #3 vessel CAD #Severe MR #Moderate AR and TR - patient with EF of 15-20% on last ECHO. Started on milrinone drip 0.125 mcg/ kg/minute. If systolic BP >95, then increase to 0.25 mcg/kg/min - patient to get 80 mg IV lasix once milrinone drip is increased to 0.25 mcg/kg/ minute. - add potassium 20 mg bid - may need to be transferred to [facility] for treatment of high risk lesion per Dr. Lozano Atrial fibrillation - started on amiodarone drip currently fpr atrial fibrillation - continue coreg 6.25 mg bid - continue aspirin and eliquis - will keep NPO, EP consult in the morning for evaluation of FELECIA with cardioversion Acute Kidney Injury -secondary to cardiorenal - creatinine up to 1.9, baseline 1.5 to 1.7 - hold entresto for now - plan as mentioned above for CHF Type II diabetes - insulin sliding scale - hold oral hypoglycemics - fingersticks achs Hypothyroidism - continue levothyroxine DVT prophylaxis: apixaban Code status: full code.
[2019-09-19] MEDS ORDERED: Acetaminophen 325 MG TAB PO PRN (20:21)
[2019-09-19 20:22] VITALS: BMI 25.0
--- NOTE | 2019-09-19 20:25 | PDOC.FMACP ---
Advance Care Planning - Note Participants: patient Summary: Advanced Care Planning was discussed. The diagnosis, prognosis and goals of care were discussed. Appropriate forms and documentation to accomplish the goals of care were discussed. All questions were answered. The Palliative Care Team will be engaged to assist with completion of any outstanding forms that are needed. Patient wants to be full code. She does not want to be intubated or kept on life support for longer than three days if it comes to this situation. She would like her to be her health care proxy
[2019-09-19] MEDS: Amiodarone 450 MG in Dextrose 5% in Water 250 ML IVPB SCH (20:59)
[2019-09-19] MEDS ORDERED: Potassium Chloride 20 MEQ TAB PO SCH (21:00)
[2019-09-19] MEDS ORDERED: Sodium Chloride 0.9% (PF) 10 ML VIAL FS PRN (21:05)
[2019-09-19] MEDS ORDERED: Pantoprazole 40 MG VIAL IVP SCH (21:15)
[2019-09-19] MEDS: Amiodarone 200 MG TAB PO SCH (21:57)
[2019-09-19] MEDS: Carvedilol 6.25 MG TAB PO SCH (21:58)
[2019-09-19] MEDS: Atorvastatin Calcium 40 MG TAB PO SCH (22:04)
[2019-09-19] MEDS: Apixaban 2.5 MG TAB PO SCH (22:04)
[2019-09-19] MEDS ORDERED: Furosemide 40 MG/4 ML VIAL SLOW IVP SCH (22:15)
[2019-09-20] MEDS ORDERED: Dextrose 50% Abboject 50 ML SYRINGE SLOW IVP PRN (00:01)
[2019-09-20] MEDS ORDERED: Dextrose 5% in Water 1,000 ML IV PRN (00:01)
[2019-09-20] MEDS ORDERED: HumaLOG 300 UNITS/3 ML VIAL SC PRN ×2 (00:01)
[2019-09-20] MEDS ORDERED: traMADol HCl 50 MG TAB PO SCH ×2 (00:15→21:00)
[2019-09-20 03:38] LABS: Anion Gap 13 mmol/L (10-20); BUN (Urea Nitrogen) 36 mg/dL (9.8-20.1); Calc. Creatinine Clearance 23 mL/min (70-130); Carbon Dioxide 26 mmol/L (23-31); Chloride 104 mmol/L (98-107); Estimated GFR-MDRD 28; Glucose 175 mg/dL (83-110); Magnesium 2.4 mg/dL (1.6-2.6); Potassium 4.5 mmol/L (3.5-5.1); Sodium 138 mmol/L (136-145)
[2019-09-20 04:06] LABS: #Eosinphils 0.2 thou/uL (0.0-0.7); #Lymphocytes 1.2 thou/uL (1.20-3.40); #Monocytes 0.5 thou/uL (0.11-0.59); #Neutrophils 2.6 thou/uL (1.40-6.50); %Basophils 0.5 % (0.0-1.0); %Eosinophils 3.5 % (0.0-10.0); %Lymphocytes 26.6 % (21.0-51.0); %Monocytes 11.8 % (0.0-10.0); %Neutrophils 57.6 % (42.0-75.0); Anisocytosis SLIGHT = 6-15 cells (100X) (0-5/hpf); Hemoglobin 8.5 g/dL (12.0-16.0); MDiff Complete? YES; Mean Corpuscular Hemoglobin 25.1 pg (27.0-31.0); Mean Corpuscular Volume 83.6 fL (78.0-98.0); Mean Platelet Volume 8.6 fL (7.4-10.4); Platelet Count 213 thou/uL (130-400); Red Blood Cell (RBC) Count 3.37 mill/uL (4.20-5.40); White Blood Cell (WBC) Count 4.5 thou/uL (4.8-10.8)
[2019-09-20] MEDS ORDERED: Levothyroxine Sodium 75 MCG TAB PO SCH (06:00)
[2019-09-20] MEDS: Amiodarone 450 MG in Dextrose 5% in Water 250 ML IVPB SCH (06:00)
[2019-09-20] MEDS ORDERED: Carvedilol 6.25 MG TAB PO SCH (08:00)
--- NOTE | 2019-09-20 08:52 | CON ---
DATE OF CONSULTATION: 09/19/2019 REASON FOR CONSULT: Management of acute on chronic heart failure. HISTORY OF PRESENT ILLNESS: Mrs. Monica Jackson, 88-year-old lady with heart failure with reduced ejection fraction due to ischemic cardiomyopathy, was admitted for acute on chronic worsening heart failure. In 2014, she could walk without limitation and traveled extensively throughout the country. In 2016, she developed progressive decline in function and progressive worsening of dyspnea on exertion. Angiogram in 2016 showed 100% occlusion of right coronary artery. She was medically treated. She improved and remained stable until 2018. In 2018, she was able to walk about 0.5 mile. Since then, she experienced progressive decline. At first, Lasix was able to keep the edema at bay. However, within the last six months, high dose of Lasix 80 mg became ineffective. She was last hospitalized for heart failure on August 05 to August 16, 2019, due to volume overload. She did receive dobutamine. After discharge, she said that she felt good for a while. However, she began to feel progressively worse with decreased exertional tolerance and increasing edema. She was feeling poorly and called nurse practitioner, Daina Toro and Daina Toro asked her to come into clinic on an urgent visit. She can now only walk about 25 feet. Walking from the lobby to the examining room caused severe shortness of breath and also chest pressure. Taking showers is now very difficult. After completion, she becomes completely exhausted, where she has to sit down and rest. She also has severe shortness of breath and chest pain while taking shower. Sweeping will cause severe shortness of breath and chest pressure. She now sleeps in a recliner with head elevated at least 30 degrees. She has some description that is like PND. However, she attributed it to her bilateral lower extremity paresthesias that will wake her up about 2 o'clock in the morning. She also noted increase in edema in her feet, leg, and abdomen. She denied any palpitations or syncope. In the clinic and also her home records , she was noted to have about a 10-pound weight increase in about last 2 weeks. PAST MEDICAL HISTORY: 1. Heart failure with reduced ejection fraction. The echocardiogram on May 15, 2019, showed dilated left ventricle at 6.1 cm, ejection fraction 20% and severe mitral regurgitation. She also has moderate aortic insufficiency. She has an enlarged left atrium and also enlarged right atrium. However, her right ventricle is in normal size and normal RV function. 2. Ischemic cardiomyopathy. Catheterization on October 20, 2017, showed that she has 90% stenosis at D1 from left anterior descending artery, 90% stenosis at D2 from left anterior descending artery, and 95% stenosis at the left circumflex and another region in the left circumflex that has greater than 95%, and her right coronary artery has been completely occluded since 2016 and none of these vessels have been revascularized. 3. Hyperlipidemia. 4. Hypertension. 5. Type 2 diabetes. 6. Chronic atrial fibrillation. SOCIAL HISTORY: She denied ever smoking. She is a nonsmoker. Alcohol. She denied any alcohol use. She denied any illicit drug use. She is to her for 69 years. FAMILY HISTORY: Her father from prostate cancer at age 58. Her mother from heart disease at age 62. ALLERGIES: THERE IS NO KNOWN DRUG ALLERGY. OUTPATIENT MEDICATION: On file: 1. Atorvastatin 40 mg each night. 2. Apixaban. She says she takes 5 mg twice a day. 3. Aspirin 81 mg daily. 4. Glimepiride 1 mg daily. 5. Tramadol 50 mg daily. 6. Levothyroxine 75 mcg daily. 7. Carvedilol 6.25 mg twice a day. 8. Potassium chloride 20 mEq one tablet twice a day. 9. Bumex 1 mg twice per day. 10. Entresto 24/26 mg combination twice per day. REVIEW OF SYSTEMS: GENERAL: No fever or chills. She does have fatigue and increasing weight. HEENT: She denies any change in vision, hearing, or swallowing. PULMONARY: She gets very easily short of breath. She is mildly short of breath at rest. CARDIOVASCULAR: She does have exertional chest pain. Please see HPI. YEUNG, please see HPI. GI: She said that she still can eat well without nausea, vomiting, diarrhea, or blood in the stool. : She did not complain of any dysuria. MUSCULOSKELETAL: She has joint swellings. NEUROLOGIC: There are no focal deficits or focal weaknesses. However, she has some chronic paresthesias due to diabetes. INTEGUMENT: There are no new lesions. PHYSICAL EXAMINATION: VITAL SIGNS: Heart rate 87, blood pressure 118/62. Her heart rate is quite irregular. On the telemetry, it shows atrial fibrillation, there are frequent PVCs. GENERAL: She is alert and conversational, reclining comfortably in bed. HEENT: Show head atraumatic. However, she does have temporalis wasting suggesting chronic heart failure. EOMI. PERRL. Oropharynx benign. She has dentures in place. Oral mucosa is moist. There is no erythema, no exudate. NECK: Her JVP appears elevated all the way up to her earlobe, which is at least 15 cm. She does have positive hepatojugular reflux. PULMONARY: She has good air movement in upper half lung khan on both sides. She has crackles at the left base. She has diminished to absent lung sound from mid down on her right lower half of the lungs. ABDOMEN: Soft, nontender, and mildly distended. Positive fluid wave. EXTREMITIES: Her lower extremities are cool to touch. There is 3+ edema. There is greater than 1 cm pitting edema from feet to her knees. Her AICD was interrogated. It is a [employer] AF VR DVFB04 single-chamber AICD with lower rate limit of 40. She has 6 episodes greater than 4 beats of non-sustained VT from August 13, 2019, to present. Ongoing EGM pattern consistent with atrial fibrillation. Thoracic impedance has steadily declined from April to present indicating ever increasing edema. ECG is also reviewed. This showed atrial fibrillation with a rate of 96. It has normal axis. There are Q-waves in V1 through V4, suggesting old anterior infarction. Her QRS interval is about 100 to 110 milliseconds. There is also nonspecific ST-T flattening. LABORATORY VALUES: Consist of sodium 138, potassium 4.6, BUN 36, and creatinine 1.94. She has BNP value of 4460 and albumin is 4.3. ASSESSMENT: An 88-year-old lady, who has [place] Heart Association stage C and also [place] Heart Association class 3B heart failure with reduced ejection fraction due to ischemic cardiomyopathy. She has both combined systolic and diastolic dysfunctions. Chronic ischemia is causing worsening of her cardiac function. Atrial fibrillation also contributes to her heart failure. Low cardiac output due to heart failure is causing renal dysfunction thereby limiting diuresis. She is showing signs of acute decompensation. This consists of cool extremeties and also progressive dyspnea on exertion. She also showing signs of overload. They include very elevated JVP, signs of pulmonary edema as well as lower extremity edema. Since the oral diuretics are not working with low cardiac output, she would need inotropic support to provide effective diuresis for volume relief. She will need more than this. Conversion from atrial fibrillation to sinus rhythm will help her cardiac output. She has non-revascularized ischemia. From her description, she is a very high functioning 88-year-old. Perhaps, revascularization can restore her cardiac function. Review of catheterization showed that she has quite a bit left-to- right collateral. Much of it comes off the left circumflex artery. Perhaps, high risk PCI to the left circumflex artery can restore much cardiac function. However, this needs to be carefully considered in evaluation. We will also need to improve her renal function if this were to occur. Much discussion has taken place with her and her family member. At this point, they will like to pursue effective treatment that would make her heart better. This includes PCI and other the interventions as needed. Please see the following for my recommendation. RECOMMENDATIONS: 1. Admit to IMCU. 2. Continue with carvedilol 6.25 mg q.12 hours. 3. Due to frequent PVCs and history of NSVT, please start amiodarone drip at 1 mg/minute for 6 hours followed by 0.5 mg/minute for the next 18 hours and then followed by oral amiodarone 200 mg twice a day. 4. Start Milrinone at 0.125 mcg/kg/minute IVGTT, if her systolic blood pressure remains above 95, then increase it to 0.25 mcg/kg/minute IVGTT, if systolic blood pressure remains above 95 mmHg, increase to 0.375 mcg/kg/minute IVGTT. 5. Once the Milrinone target dose 0.35 mcg/kg/minute IVGTT is reached, please give Lasix 80 mg IV one dose. 6. Please continue her potassium supplement of K-Dur 20 mEq twice a day. We will need to keep her potassium at 4 or higher and also magnesium 2 or higher to reduce the chances of arrhythmia. 7. I have requested Dr. Edward Fuller to come and see her. Dr. Fuller will revaluate her catheterization and make a judgment about whether in-house high- risk PCI is possible. 8. If high risk PCI is not safe to be done at [facility], she will be transferred to a different facility. Currently, [facility] her to take on this case. 9. We will also ask Dr. Hernadez to consider DC cardioversion. Putting her back in sinus rhythm even for a few days would help her to get through this decompensation. 10. We will also provide GI protection with Protonix 40 mg daily. 11. If her volume status changes, blood pressure stabilizes, at that time we can reevaluate on how to add back Entresto. It has been a pleasure taking care of Ms. Monica Langofrdgaetano. If you have any questions, please give me a call. Job ID: [id number] MTDD
[2019-09-20] MEDS ORDERED: Multivitamin W/ Minerals 1 TAB PO SCH (09:00)
[2019-09-20] MEDS ORDERED: Enoxaparin Sodium 30 MG/0.3 ML SYRINGE SC SCH (09:00)
[2019-09-20] MEDS ORDERED: Pantoprazole 40 MG VIAL IVP SCH (09:00)
[2019-09-20] MEDS ORDERED: Aspirin 81 mg Enteric Coated Tablet PO SCH (09:00)
[2019-09-20] MEDS: Potassium Chloride 20 MEQ TAB PO SCH ×2 (09:42→15:56)
[2019-09-20] MEDS: Carvedilol 6.25 MG TAB PO SCH ×2 (09:42→20:00)
[2019-09-20] MEDS: Amiodarone 200 MG TAB PO SCH ×2 (09:43→20:00)
[2019-09-20] MEDS: Apixaban 2.5 MG TAB PO SCH ×2 (09:43→19:59)
--- NOTE | 2019-09-20 10:09 | PRG ---
DATE OF SERVICE: 09/20/2019 SUBJECTIVE: Ms. Jackson had a rough night. Her leg paresthesias bother her quite a bit. She spent most of the night awake sitting beside the bed. However, she responded in excellent fashion to both milrinone and also IV Lasix. She felt better and breathes easier with milrinone titrated up to 0.375 mcg/kg/minute. 80 mg IV Lasix produced 1000 mL of urine output. She felt better after that. Her legs felt much looser and she is breathing easier. REVIEW OF SYSTEMS: GENERAL: There is no fever, chills, or cough. HEENT: There is no change in vision, hearing, or swallowing. PULMONARY: Please see HPI. CARDIOVASCULAR: There is no palpitations or syncope. There are no chest pains. GI: She ate a light dinner last night, but she is n.p.o. this morning for potential cardioversion. : There is no problem with urination. She had 4 large urine outputs. INTEGUMENT: There is no skin breakdown. MUSCULOSKELETAL: There is no complaint. NEUROLOGIC: There are no focal deficits. However, she has a chronic paresthesias in both legs that kept her up at night. MEDICATIONS: Her cardiac medication consists of, 1. Amiodarone drip currently running at 0.5 mg/minute and she will complete in 18 hours. After that, she will be converted to amiodarone 200 mg twice a day. 2. Apixaban at 2.5 mg b.i.d. 3. Carvedilol 6.25 mg twice a day. 4. Milrinone 0.375 mcg/kg/minute. 5. Atorvastatin at 40 mg at bedtime. 6. Aspirin 81 mg daily. 7. Potassium chloride supplement at 20 mEq b.i.d. PHYSICAL EXAMINATION: VITAL SIGNS: Telemetry was reviewed. She has no PVC, but since the initiation of the amiodarone, the number of PVC has greatly reduced. Her average heart rate is about 77. Current vitals are heart rate 82, blood pressure 97/54. GENERAL: She is resting comfortably in bed, breathing easier today. HEENT: Showed EOMI. PERRL. Oropharynx is slightly dry, but there is no erythema, no exudate. NECK: Her JVP is still about 15 cm near the earlobe. PULMONARY: She has better air movement today. She still has left basilar crackles, but less so. She still has diminished breath sounds at the right mid to below lung khan; however, there is more aeration at right mid lung field. ABDOMEN: Soft, nontender. Positive bowel sounds. EXTREMITIES: Lower extremity, her 3+ feet to knee edema has greatly decreased. She has about 2+ edema from the feet to about one-third way up. This has greatly improved. LABORATORY VALUES: Her sodium is 138, potassium is 4.5, her creatinine has improved, decreased from 1.9 down to 1.74. Her BNP also has improved decreased from 4460 down to 3954. Her troponin I also has decreased from 0.031, went down to 0.013. Her primary land leveler, Dr. Fuller, has reviewed her catheterization extending back from 2018. He believes the stenoses are too small and occurring at difficult locations and also there is bifurcation, combination will make PCI not possible at this institution. ASSESSMENT: 88-year-old lady remains in AHA stage C and also [place] Heart Association class 3B heart failure with reduced ejection fraction due to ischemic cardiomyopathy. Her non-revascularized stenoses are causing chronic ischemia thus causing cardiac dysfunction. It will get worse over time. It has combined systolic and diastolic dysfunction. She also has atrial fibrillation, which exacerbated the situation. Milrinone did increase her cardiac output. Thereby providing effective diuresis and improving her renal function. She still suffered from a cardiorenal syndrome. At this point, the best solution is to transfer to a center, who can attempt at a high risk PCI with potential urgent left ventricular assist device evaluation fo if that is not possible. Please see the following for my recommendations. RECOMMENDATIONS: 1. Continue milrinone 0.375 mcg/kg/minute IV GTT. 2. Please give Lasix 60 mg IV one dose now. We will reassess. 3. Please keep potassium above 4 and magnesium above 2. 4. We will continue to contact with Dr. Hernadez about cardioversion 5. Initiate transfer to [facility] for higher level of care. This higher level of care includes potential for high-risk percutaneous intervention of risky lesions and chronically total occlusion of the right coronary artery. If this is not possible, [facility] can also have the capability to evaluate the patient for left ventricular assistive device urgently. All of these are not possible at this institution, and she has been accepted by Dr. Javad Block at [facility]. 6. Please recheck CBC and also type and screen to make sure her drop in hemoglobin is real. 7. Please start gabapentin for her diabetic neuropathy. It has been a pleasure taking care of Mrs. Jackson. If you have any questions, please give me a call. Job ID: [id number] MTDD
[2019-09-20] MEDS ORDERED: Gabapentin 100 MG CAP PO SCH ×2 (11:00→21:00)
[2019-09-20 11:58] LABS: #Eosinphils 0.1 thou/uL (0.0-0.7); #Lymphocytes 0.9 thou/uL (1.20-3.40); #Monocytes 0.3 thou/uL (0.11-0.59); %Basophils 0.4 % (0.0-1.0); %Eosinophils 2.9 % (0.0-10.0); %Lymphocytes 20.4 % (21.0-51.0); %Monocytes 7.7 % (0.0-10.0); %Neutrophils 68.7 % (42.0-75.0); Mean Corpuscular HGB CONC 30.2 g/dL (32.0-36.0); Mean Corpuscular Hemoglobin 25.4 pg (27.0-31.0); Mean Platelet Volume 8.8 fL (7.4-10.4); Platelet Count 236 thou/uL (130-400); RBC Distribution Width 18.1 % (11.5-14.5); Red Blood Cell (RBC) Count 3.55 mill/uL (4.20-5.40); White Blood Cell (WBC) Count 4.4 thou/uL (4.8-10.8)
[2019-09-20] MEDS ORDERED: Furosemide 100 MG/10 ML VIAL SLOW IVP SCH (12:00)
--- NOTE | 2019-09-20 14:25 | CON ---
DATE OF CONSULTATION: HISTORY OF PRESENT ILLNESS: Ms. Jackson is an 88-year-old female. She says she feels fine, but everybody keeps telling her something is wrong. She presented with shortness of breath which is improved. She has known coronary disease. PAST MEDICAL HISTORY: Remarkable for 1. An appendectomy. 2. Hysterectomy. 3. History of spine surgery. 4. History of atrial fibrillation. 5. History of congestive heart failure. 6. History of diabetes. 7. History of hypothyroidism. FAMILY HISTORY: Negative for lung disease in early age. REVIEW OF SYSTEMS: Otherwise negative. PHYSICAL EXAMINATION: GENERAL: She is in no distress. She says she feels like she can go home. VITAL SIGNS: No vital signs recorded in the computer. She is afebrile. Oximetry is 95% on room air. HEAD AND NECK: Unremarkable. LUNGS: Clear. HEART: Regular rhythm. ABDOMEN: Soft and nontender. EXTREMITIES: Without clubbing, cyanosis, or edema. LABORATORY DATA: White count 4.4, hemoglobin 9.0, platelets 236. Electrolytes are normal. Creatinine 1.74. Chest radiograph shows bilateral effusions. IMPRESSION: 1. Congestive heart failure. 2. Chronic kidney disease. 3. Advanced age with deconditioning. PLAN: Continue current care. She appears to be medically stable. Job ID: [id number]
--- NOTE | 2019-09-20 15:35 | CON ---
DATE OF CONSULTATION: REASON FOR CONSULTATION: Atrial fibrillation, congestive heart failure, and assess CAD. HISTORY OF PRESENT ILLNESS: Ms. Jackson is an 88-year-old woman, who recently was seen and evaluated by Dr. Ravi Lozano. She has a history of congestive heart failure, severe multivessel coronary disease, and history of cardiomyopathy. She also has underlying atrial fibrillation. She had had a recent 10-pound weight gain. She does have mild shortness of breath. Ms. Jackson has had a non-Q-wave MO in the past. She underwent coronary angiography in 2018. She was found to have complete occlusion of the right coronary artery in addition to severe stenosis in multiple areas within the circumflex artery and into the OM branch with a subtotaled inferior branch of the OM. She also had severe disease of the ostium of the D1 and severe disease of the proximal portion of the D2 branch. At that point, the patient opted for continued medical therapy and not interested in any further intervention. Unfortunately, Ms. Jackson has had multiple hospitalizations for congestive heart failure. Dr. Lozano wanted an opinion on percutaneous intervention to the OM branch. PAST MEDICAL HISTORY: Hypertension, hyperlipidemia, diabetes mellitus, paroxysmal atrial fibrillation, severe CAD, and ischemic cardiomyopathy. HOME MEDICATIONS: 1. Metolazone. 2. Tramadol. 3. Pantoprazole. 4. Potassium. 5. Isosorbide. 6. Tirosint. 7. Aspirin. 8. Lasix. 9. Atorvastatin. 10. Eliquis. 11. Coreg. 12. Metformin. 13. Losartan. REVIEW OF SYSTEMS: A 10-point review of systems is reviewed and is as above, otherwise negative. PHYSICAL EXAMINATION: GENERAL: Patient is a pleasant woman, who is in no acute distress. The patient appears their stated age. VITAL SIGNS: Blood pressure 120/70, pulse 80, and respirations 20. NEUROLOGIC: The patient is alert and oriented x3 with no focal neurologic deficits. HEENT: Sclerae without icterus. Mouth has moist mucous membranes with normal pallor. NECK: No JVD. Carotid upstroke brisk. No bruits bilaterally. LUNGS: Clear to auscultation with unlabored respirations. BACK: No scoliosis or kyphosis. CARDIAC: Regular rate and rhythm with normal S1 and S2. No S3 or S4 noted. No significant rubs, murmurs, thrills, or gallops noted throughout the precordium. PMI is not displaced. There is no parasternal heave. ABDOMEN: Soft, nontender, nondistended. No peritoneal signs present. No hepatosplenomegaly. No abnormal striae. EXTREMITIES: 2+ femoral and 2+ dorsalis pedis pulses. No cyanosis, clubbing, or edema. SKIN: No gross abnormalities. PERTINENT LABORATORY DATA: Hemoglobin 9.0. Creatinine 1.74. GFR 28. IMPRESSION: 1. Recurrent congestive heart failure. 2. Severe coronary artery disease. 3. Atrial fibrillation. 4. Status post implantable cardioverter-defibrillator. RECOMMENDATIONS: I reviewed Ms. Jackson's films in detail. It appears to me the circumflex artery into an OM branch is a very small vessel. There is no good distal region for a stent placement. The vessel also appears too small for the smallest stent available. She also has a subtotal inferior branch of the OM branch. I do not feel this is approachable percutaneously. I also do not feel intervention to the diagonal branch would be of much benefit. Her collaterals are from her OM branch. She also has a GFR of 28 with creatinine of 1.74. In addition, her hemoglobin is 9. I also discussed with Dr. Lozano on approach of cardioversion. The patient was on IV amiodarone today, but had to be stopped due to hypotension. At this point, could certainly proceed with cardioversion tomorrow, but she is unlikely to hold given the large left atrium and chronic atrial fibrillation. It was decided to treat her medically. She has opted to transfer to [place]. The transfer will be made by Dr. Ravi Lozano. Continue dobutamine and milrinone. Job ID: [id number]
[2019-09-20] MEDS ORDERED: Furosemide 40 MG/4 ML VIAL ONE (15:53)
--- NOTE | 2019-09-20 18:36 | DIS ---
DATE OF ADMISSION: 09/19/2019 DATE OF DISCHARGE: 09/20/2019 CONSULTATIONS: 1. Dr. Ravi Lozano with Cardiology. 2. Dr. Edward Fuller with Interventional Cardiology. 3. Dr. Kevin Jaeger with Critical Care. 4. Dr. Himanshu Hernadez with Electrophysiology. PROCEDURES: None. BRIEF HISTORY OF PRESENT ILLNESS: This 88-year-old female with past medical history of three-vessel CAD, systolic CHF, hyperlipidemia, who has been having increasing shortness of breath over the past few months. The patient was on Lasix 80 mg daily and continued to have increasing dyspnea on exertion and progressive leg swelling. She denied orthopnea, PND, chest pain, excessive salt intake. She went to her heart failure clinic and was admitted to the ICU for Milrinone drip. The patient had a cardiac cath in October 2017, which showed 100% occlusion of her RCA, 90% of her LAD, 95% occlusion of her left circumflex. She was admitted for management of her heart failure. HOSPITAL COURSE: #Acute systolic CHF exacerbation/three vessel CAD/severe #MR/moderate AR and TR #Atrial fibrillation : The patient was started on a Milrinone drip. Her Milrinone drip was titrated up to 0.375 mcg/kg per minute. She was also given IV Lasix 80 mg on the which was decreased to 60 mg on the . She was also on amiodarone drip for her atrial fibrillation. She experienced some hypotension with this so this was discontinued. She was switched to oral amiodarone 200 mg p.o. b.i.d. The patient was evaluated by Dr. Fuller from Cardiology, who felt that her OM branch in her circumflex was too small for a stent placement. He recommended that the patient be transferred to [facility] for a second opinion for intervention since they may have better equipment. EP saw her and they were going to proceed with cardioversion as well in the morning, but it was decided to hold off and have her seen for PCI initially instead. Patient is not interested in CABG. She will be transferred on Milrinone drip at 0.375 mcg/kg per minute. She will be continued on her Coreg 6.25 q.12 and her Lasix 60 mg IV once daily and potassium 20 mEq p.o. b.i.d. Acute kidney injury: The patient's creatinine was up to 1.9. Her creatinine has improved to 1.7. Her Entresto is on hold for now. Type 2 diabetes: She will continue on her insulin sliding scale. Hypothyroidism: She will continue on levothyroxine. DISCHARGE PHYSICAL EXAMINATION: VITAL SIGNS: Temperature 98.8, blood pressure 120s to 130s, respiratory rate 12, O2 saturation 95% on room air. GENERAL: The patient is alert, awake, and oriented x3. CVS: Regular rate and rhythm with no murmurs, rubs, or gallops. LUNGS: Clear to auscultation bilaterally. ABDOMEN: Positive bowel sounds, soft, nontender, nondistended. EXTREMITIES: 1 to 2+ edema. PERTINENT LABORATORY DATA: CBC 09/19: White count 4.4, hemoglobin 9.0, hematocrit 29.8, MCV 84, platelet count 236. BMP on 09/19: Sodium 138, potassium 4.5, chloride 104, carbon dioxide 26, BUN 36, creatinine 1.74, glucose 175, magnesium 2.4. LFTs: AST 20, ALT 13, alkaline phosphatase 111. Troponin I: 0.031, 0.022, 0.013. CK-MB: 2.4. BNP: 4460 on the th, which decreased to 3954 on the . TSH: 2.76. IMAGING: Chest x-ray 09/18: Shows bilateral pleural effusions, larger on the right. Cardiomegaly and mild vascular engorgement. EKG: Shows atrial fibrillation with low voltage. DISCHARGE CONDITION: Stable. DISPOSITION: The patient will be transferred to [facility] in [place] for further intervention of her circumflex lesion. The patient is not interested in an open heart surgery. DIET: Heart-healthy diet. Job ID: [id number] [facility]
[2019-09-20 19:34] VITALS: TEMP 97.7
[2019-09-20] MEDS: Atorvastatin Calcium 40 MG TAB PO SCH (20:00)
[2019-09-20 20:01] VITALS: BP 104/56
--- NOTE | 2019-09-21 09:50 | CON ---
DATE OF CONSULTATION: 09/20/2019 HISTORY OF PRESENT ILLNESS: I am seeing Ms. 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 Her problems are: 1. Persisting atrial fibrillation. a. CHADS-VASc score of 7 with age, gender, CHF, coronary vascular disease, hypertension, diabetes, on chronic Eliquis therapy. 2. Chronic systolic congestive heart failure with ischemic cardiomyopathy. a. Prior history of myocardial ischemia. b. 100% RCA occlusion in the past, medically treated. c. Chronic exertional angina. d. Reduced LVEF at 20% to 25% on echo on 01/24/2018 with [id number] MR and TR, mildly elevated pulmonary pressures in the past. 3. History of PVCs. 4. Peripheral vascular disease. 5. Risk factors including hypertension, type 2 diabetes, and hypercholesteremia. ALLERGIES: NONE NOTED. MEDICATIONS: At home, included: 1. Levothyroxine. 2. Eliquis 2.5 mg twice a day. 3. Lipitor. 4. Glimepiride. 5. Entresto. 6. Aspirin. 7. Potassium chloride. 8. Tramadol. 9. Multivitamin. 10. Tylenol. 11. Carvedilol 3.125 mg twice a day. 12. Bumetanide. Currently, the patient is on: 1. Amiodarone IV. 2. Milrinone. SUBJECTIVE: Ms. Jackson was admitted with progressive dyspnea especially on exertion and some swelling and lower extremity edema. She was admitted for diuresis and she was also placed on IV amiodarone by Dr. Lozano. I was consulted for consideration of cardioversion. Currently, she seems to be feeling better. Denies PND or orthopnea. No fever, chills, or cough. Still gets exertional dyspnea. No chest pain, angina. No stroke-like symptoms. No bleeding issues are documented. REVIEW OF SYSTEMS: Rest of 12-point review of system otherwise unremarkable. PAST HISTORY: As above. SOCIAL HISTORY: The patient denies smoking, EtOH, or drug abuse. FAMILY HISTORY: Significant for 2 sons had aneurysm, one had a bypass. Mother of heart attack. SURGICAL HISTORY: Significant for: 1. Appendectomy. 2. Hysterectomy. 3. Spinal surgery. 4. ICD implantation by me on 02/24/2019, with [employer] Visia single-chamber device. OBJECTIVE DATA: VITAL SIGNS: Blood pressure 97/61, heart rate 91, respirations 12, temperature 97.5 degrees Fahrenheit, and oxygen saturation 100% on room air. GENERAL: This is an alert and oriented woman, in no apparent distress. NECK: Supple. Jugular veins slightly distended. CHEST: Coarse. No crackles. HEART: Sounds are irregularly irregular. S1 and S2 variable. A 1/6 holosystolic murmur is heard. NEUROLOGIC: The patient is nonfocal. MUSCULOSKELETAL: Without joint swelling or deformity. SKIN: Without rash. DATABASE: EKG is reviewed, revealing atrial fibrillation, rate of 98 beats per minute, narrow QRS at 100 milliseconds, QTc is 467 milliseconds. Subsequent EKGs revealed atrial fibrillation, now with controlled ventricular rate. LABORATORY DATA: White blood cell count is 4.5, hemoglobin is 8.5, and platelet count is 213. Sodium 138, potassium 4.5, BUN is 36, and creatinine 1.74. In's and out's reviewed, revealing -440 mL for last shift. ASSESSMENT AND PLAN: Ms. Jackson is a pleasant 88-year-old woman with history of chronic persisting atrial fibrillation, ischemic cardiomyopathy, severely reduced left ventricular ejection fraction, single-chamber implantable cardiac defibrillator in place, with progressive dyspnea, with history of coronary artery disease. She has been hospitalized by Dr. Lozano and placed on milrinone drip, also amiodarone was started. I was consulted for consideration of cardioversion to improve heart failure status. We did discuss the pros and cons about cardioversion. Clearly, with her long-standing atrial fibrillation as well as the severely reduced left ventricular ejection fraction, moderate left atrial enlargement, rhythm maintenance will be difficult without antiarrhythmic agents. The best option is likely to be amiodarone, although carries a potential long-term risk of pulmonary, thyroid, liver, and optic nerve toxicity. She understands this as well as her daughter and who are present. We discussed these chances. On the other hand, heart failure and symptom management would be difficult without maintaining sinus rhythm and it is reasonable to consider cardioversion. Hence, she has been on uninterrupted anticoagulation with adequately dosed Eliquis 2.5 mg twice a day as well as aspirin, her risk of thromboembolism is lower. It would be reasonable to proceed with the cardioversion. We will make arrangements for having that done tomorrow. Risks and benefits discussed including a chance of stroke and again risk with amiodarone long-term. Single-chamber implantable cardiac defibrillator function. CHF with markedly elevated BNP at 4000 as well as moderate renal dysfunction as per Dr. Lozano. Thank you for allowing me to participate in the care of this patient. Job ID: [id number]
--- NOTE | 2019-09-22 10:21 | PQF ---
FLORA CUMMINS UMA [id number] [facility]- B02 [id number] CLINICAL DOCUMENTATION CLARIFICATION FORM: POST DISCHARGE Addendum to original discharge summary date: ____ Late entry note date: __ DATE: 09/22/2019 ATTN: ЕЛЕНА VALDOVINOS Please exercise your independent, professional judgment in responding to the clarification form. Clinical indicators are provided on the bottom of this form for your review Please check appropriate box(s): kindly clarify the chronic kidney disease stage [ ] Chronic kidney disease stage 1 [ ] Chronic kidney disease stage 2 [ ] Chronic kidney disease stage 3 [ X ] Chronic kidney disease stage 4 [ ] Chronic kidney disease stage 5 [ ] ESRD [ ] Other diagnosis [ ] Unable to determine In addition, please specify: Present on Admission (POA): [ X ] Yes [ ] No [ ] Unable to determine National Kidney Foundation Guidelines for CKD Staging Stage I Kidney damage with normal or increased GFRGFR > 90 Stage IIKidney damage with mildly decreased GFRGFR 60-89 Stage III Kidney damage with moderately decreased GFRGFR 30-59 Stage IVKidney damage with severely decreased GFRGFR 16-29 Stage VKidney failureGFR<15 ESRDEnd Stage Renal DiseaseOn dialysis For continuity of documentation, please document condition throughout progress notes and discharge summary. Thank You. CLINICAL INDICATORS - SIGNS / SYMPTOMS / LABS / RESULTS AND LOCATION IN MR Chronic kidney disease stage-Documented in consultation report on 09/19 by Kevin Jaeger MD [id number] H-Documented in Laboratory Creatinine 1.74 H-Documented in Laboratory [id number] in Laboratory Acute kidney injury :The patient's creatinine was up to 1.9 .Her creatinine has improved to 1.7 -Documented in consultation report on 09/19 by Kevin Jaeger MD RISK FACTORS / RESULTS AND LOCATION IN MR Acute systolic CHF exacerbation -Documented in consultation report on 09/19 by Kevin Jaeger MD Type 2 diabetes-Documented in consultation report on 09/19 by Kevin Jaeger MD TREATMENTS / RESULTS AND LOCATION IN MR Her Entresto is on hold for now-Documented in consultation report on 09/19 by Kevin Jaeger MD There by providing effective diuresis and improving her renal function- Documented in progress note on 09/19 by Ravi Lozano MD SAP German Instructor Crystal Reports Winform Viewer (This form is maintained as a part of the permanent medical record) 2014 [employer]. All Rights Reserved [email or web address]
--- NOTE | 2019-09-22 12:54 | PQF ---
FLORA CUMMINS NOREEN PAREDES [id number] [facility]- B02 [id number] CLINICAL DOCUMENTATION CLARIFICATION FORM: POST DISCHARGE Addendum to original discharge summary date: ____ Late entry note date: __ DATE:09/22/2019 ATTN:NOREEN PAREDES Please exercise your independent, professional judgment in responding to the clarification form. Clinical indicators are provided on the bottom of this form for your review Please check appropriate box(s): AMI TYPE: [ ] Acute Coronary Syndrome (ACS) without Acute WA meaning Unstable Angina [ X] NSTEMI (WA type I) [ ] NSTEMI due to Demand Ischemia (AMI Type II) [ ] Demand Ischemia without WA [ ] STEMI (please also specify site and arterysee below) If STEMI, SITE:[ ] Anterior [ ] Apical [ ] Lateral [ ] Inferior [ ] Posterior [ ] Q Wave [ ] Septal [ ] Unable to Determine SPECIFIC ARTERY (Based on site) [ ] Left Main Coronary[ ] Diagonal [ ] Left Anterior Descending[ ] Oblique Marginal [ ] Right Coronary Artery[ ] Unable to Determine [ ] Left Circumflex [ ] Other diagnosis [ ] Unable to determine In addition, please specify: Present on Admission (POA): [ X ] Yes [ ] No [ ] Unable to determine CLINICAL INDICATORS - SIGNS / SYMPTOMS / LABS 12 lead EKG shows , atrial fibrillation with controlled ventricular response, Low voltge QRS, cannot rule out anterior infarct age undetermined-Documented in ED on 09/18 by Daisy Umanzor Troponin-0.031-Documented in H&P on 09/18 by Noreen Paredes MD Acute systolic CHF exacerbation-Documented in H&P on 09/18 by Noreen Paredes MD Severe MR-Documented in H&P on 09/18 by Noreen Paredes MD has had a non-Q-wave WA in the past-Documented in Consultation on by Edward Fuller Md Troponin-0.031,0.022,0.013-Documented in discharge summary on 09/19 by Hilario Paredes MD RISKS: CAD-Documented in H&P on 09/18 by Noreen Paredes MD Atrial fibrilation-Documented in H&P on 09/18 by Noreen Paredes MD has had a non-Q-wave WA in the past-Documented in Consultation on by Edward Fuller Md TREATMENTS: Aspirin 81 mg daily-Documented in Consultation on 09/18 by Ravi Lozano MD Cordarone 45 mg -Documented in medication snapshot Primacor 20 mg-Documented in medication snapshot SAP Computer Numerical Control Operator Crystal Reports Winform Viewer (This form is maintained as a part of the permanent medical record) 2014 [employer]. All Rights Reserved [email or web address]
--- NOTE | 2019-09-22 14:54 | EKG ---
Test Reason : Blood Pressure : / mmHG Vent. Rate : 098 BPM Atrial Rate : 055 BPM P-R Int : 000 ms QRS Dur : 100 ms QT Int : 366 ms P-R-T Axes : 000 080 -69 degrees QTc Int : 467 ms Atrial fibrillation Low voltage QRS Cannot rule out Anteroseptal infarct , age undetermined Abnormal ECG Confirmed by UBALDO MATTA ([id number]), acquisitions editor EARL ELMORE ([id number]) on 09/22/2019 2:54:08 PM Referred By: Confirmed By:UBALDO Manzano
== END 2019-09-20 20:15 | disposition short-term general hospital (02) | DRG 280 ==
LOC: ERS 16:18 → IMCU/EMU 18:26
PROVIDERS: ADMIT Internal Medicine; ATTEND Internal Medicine
DX: I13.0 Hypertensive heart and chronic kidney disease with heart failure and stage 1 through stage 4 chronic kidney disease, or unspecified chronic kidney disease (principal); I50.23 Acute on chronic systolic (congestive) heart failure; I21.4 Non-ST elevation (NSTEMI) myocardial infarction; N18.4 Chronic kidney disease, stage 4 (severe); I11.0 Hypertensive heart disease with heart failure; I25.10 Atherosclerotic heart disease of native coronary artery without angina pectoris; E03.9 Hypothyroidism, unspecified; E78.5 Hyperlipidemia, unspecified; I25.5 Ischemic cardiomyopathy; I48.0 Paroxysmal atrial fibrillation; Z95.810 Presence of automatic (implantable) cardiac defibrillator; Z95.5 Presence of coronary angioplasty implant and graft; Z90.710 Acquired absence of both cervix and uterus; E11.22 Type 2 diabetes mellitus with diabetic chronic kidney disease; N18.9 Chronic kidney disease, unspecified; I25.2 Old myocardial infarction; E11.51 Type 2 diabetes mellitus with diabetic peripheral angiopathy without gangrene; Z98.890 Other specified postprocedural states
CPT/HCPCS: 36415; 36416; 71046; 80048; 80053; 82553; 83735; 83880; 84443; 84484; 85025; 86850; 86900; 86901; 93005; 96365; 96366; C9113; J0282; J1940; J2260; J3490; J7070